=== PATIENT | male | born 1940 | race Caucasian/White ===

== ENCOUNTER 2017-06-16 18:42 | Inpatient (IN) | payer OTHER ==
[~2017-06-16] VITALS: Ht 182.9 cm; Wt 83.4 kg
--- NOTE | 2017-06-16 19:10 | EMERGENCY ROOM VISIT NOTE ---
History Report prepared by Gloria: Dian Whitehead Under the Supervision of: Dr. Kwadwo Delvalle M.D. 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 The patient states for the past week he has had some dizziness and balance problems. Over the past week he has had two episodes where he lost his balance completely and fell to the ground. He denies any injury from the falls. He did not hit his head. He denies feeling like the room is spinning and states that he sometimes just feels lightheaded. states that he has been having a difficult time getting up out of his chair. The patient reports that he has been feeling generally weak all over for the past week or so. and patient agree that he has been having difficulty doing things for the past few months. He has had a hard time buttoning his clothes. He has been having a hard time putting his password in the computer. He states that this morning it took him 6 tries to remember his password. states that he has been trying to put on his clothes upside down. Three days ago the patient started complaining of pain above his right eye. His daughter was recently sick with the flu and he thought that he might be getting that. The patient denies rash, cough, neck pain, chest pain, shortness of breath, abdominal pain, urinary symptoms, melena, and hematochezia. He does not take any blood thinners. 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 Review of Systems See HPI for pertinent positives & negatives. A total of 10 systems reviewed and were otherwise negative. Past Medical & Surgical Medical Problems: (1) Hypertension (2) Laceration of lower extremity (3) Lower leg fracture (4) Weight loss, non-intentional Old medical records were reviewed. Nurse's notes were reviewed and I agree with. Family History Diabetes mellitus FH: heart disease Social History Smoking Status: Never Smoker Drug Use: none Marital Status: Housing Status: lives with family Occupation Status: retired Allergies Coded Allergies: No Known Allergies (Verified , 02/23/15) Physical Exam Vital Signs Date Time Temp Pulse Resp B/P (MAP) Pulse Ox O2 Delivery O2 Flow Rate FiO2 06/16/17 19:30 71 20 144/78 94 Room Air 06/16/17 18:45 36.9 84 18 153/80 95 Room Air Physical Exam General: Non-ill appearing older male in no acute distress, alert and oriented x3. HEENT: Normal cephalic atraumatic. Pupils are equal round and reactive to light. Sclerae anicteric. Extraocular movements are intact. Oropharynx is pink with moist mucous membranes. No swelling of the mouth lips or tongue. Neck: Supple with a midline trachea. No meningeal signs or stiffness, no JVD or bruits. No Stridor. Chest: Clear to auscultation bilaterally. No wheezes or rhonchi. No increased work of breathing. Heart: regular rate and rhythm. Abdomen: Soft nontender, nondistended without rebound guarding or rigidity. Extremities: No cyanosis clubbing or edema. No calf tenderness or assymetry Spine/Back. Non tender to palpation. No CVA tenderness Skin: Good turgor without rashes. Neurologic exam: Cranial nerves two through 12 are intact. Motor and sensation are intact and symmetrical throughout. No tremor, finger to nose intact. Medical Decision & Procedures ER Provider Diagnostic Interpretation: Radiology results as stated below per my review and radiologist interpretation: HEAD CT NONCONTRAST CT DOSE: 614.27 mGy.cm HISTORY: diffulty walking, confusion TECHNIQUE: Multiaxial CT images of the head were performed without the use of intravenous contrast. Automated exposure control was utilized for this study. A dose lowering technique was utilized adhering to the principles of ALARA. Comparison: None. Findings: Trace fluid and mild mucosal thickening within the left maxillary sinus. The calvarium and skull base are intact. There is no mass, hematoma, midline shift. Focal hypodense area within the right anterior temporal lobe which measures 2.5 x 1.5 cm. This is consistent with a subacute infarct. Punctate old lacunar infarct within the left basal ganglia. Impression: Small focal hypodensity within the right temporal lobe consistent with a subacute infarct. No intracranial hemorrhage identified. Electronically signed by: Tim Garza M.D. 06/16/2017 8:10 PM Dictated Date/Time: 06/16/2017 8:00 PM CHEST ONE VIEW PORTABLE HISTORY: Atypical CHEST PAIN COMPARISON: None. FINDINGS: The lungs are clear. Cardiac silhouette is normal in size. No pleural effusions. No pneumothorax. IMPRESSION: No acute process. Electronically signed by: Tim Garza M.D. 06/16/2017 7:23 PM Dictated Date/Time: 06/16/2017 7:19 PM Laboratory Results 06/16/17 19:10 Red Blood Count 4.64, Mean Corpuscular Volume 92.2, Mean Corpuscular Hemoglobin 32.1, Mean Corpuscular Hemoglobin Concent 34.8, Mean Platelet Volume 10.2, Neutrophils (%) (Auto) 67.4, Lymphocytes (%) (Auto) 18.6, Monocytes (%) (Auto) 11.5, Eosinophils (%) (Auto) 1.8, Basophils (%) (Auto) 0.5, Neutrophils # (Auto ) 8.21, Lymphocytes # (Auto) 2.26, Monocytes # (Auto) 1.40, Eosinophils # (Auto ) 0.22, Basophils # (Auto) 0.06 06/16/17 19:10 Test 06/16/17 19:10 06/16/17 19:45 White Blood Count 12.18 K/uL (4.8-10.8) Red Blood Count 4.64 M/uL (4.7-6.1) Hemoglobin 14.9 g/dL (14.0-18.0) Hematocrit 42.8 % (42-52) Mean Corpuscular Volume 92.2 fL (80-100) Mean Corpuscular Hemoglobin 32.1 pg (25-34) Mean Corpuscular Hemoglobin Concent 34.8 g/dl (32-36) Platelet Count 284 K/uL (130-400) Mean Platelet Volume 10.2 fL (7.4-10.4) Neutrophils (%) (Auto) 67.4 % Lymphocytes (%) (Auto) 18.6 % Monocytes (%) (Auto) 11.5 % Eosinophils (%) (Auto) 1.8 % Basophils (%) (Auto) 0.5 % Neutrophils # (Auto) 8.21 K/uL (1.4-6.5) Lymphocytes # (Auto) 2.26 K/uL (1.2-3.4) Monocytes # (Auto) 1.40 K/uL (0.11-0.59) Eosinophils # (Auto) 0.22 K/uL (0-0.5) Basophils # (Auto) 0.06 K/uL (0-0.2) RDW Standard Deviation 43.0 fL (36.4-46.3) RDW Coefficient of Variation 12.8 % (11.5-14.5) Immature Granulocyte % (Auto) 0.2 % Immature Granulocyte # (Auto) 0.03 K/uL (0.00-0.02) Erythrocyte Sedimentation Rate 10 mm/hr (0-14) Prothrombin Time 10.7 SECONDS (9.0-12.0) Prothromb Time International Ratio 1.0 (0.9-1.1) Activated Partial Thromboplast Time 36.6 SECONDS (21.0-31.0) Partial Thromboplastin Ratio 1.4 Anion Gap 7.0 mmol/L (3-11) Est Creatinine Clear Calc Drug Dose 53.1 ml/min Estimated GFR () 62.2 Estimated GFR (Non- 53.6 BUN/Creatinine Ratio 14.1 (10-20) Calcium Level 9.3 mg/dl (8.5-10.1) Total Bilirubin 1.4 mg/dl (0.2-1) Direct Bilirubin 0.2 mg/dl (0-0.2) Aspartate Amino Transf (AST/SGOT) 19 U/L (15-37) Alanine Aminotransferase (ALT/SGPT) 34 U/L (12-78) Alkaline Phosphatase 74 U/L (45-117) Total Protein 7.6 gm/dl (6.4-8.2) Albumin 4.1 gm/dl (3.4-5.0) Lipase 145 U/L (73-393) Thyroid Stimulating Hormone (TSH) 2.300 uIu/ml (0.300-4.500) Troponin I < 0.015 ng/ml (0-0.045) Laboratory studies as stated above per my review. ECG Indication: weakness Rate (beats per minute): 73 Rhythm: normal sinus Findings: no acute ischemic change, no ectopy, other (poor R-wave progression) Comparison ECG Date: 09/01/1997 Change: Rate has increased, poor R-wave progression is now present. ED Course 1851: Past medical records reviewed. The patient was evaluated in room B11B, and a complete history and physical examination were performed. 2017: I reassessed the patient at this time. He is feeling better and resting comfortably. I discussed the results and treatment plan with the patient and his . I answered all pertaining questions that they had. They expressed understanding and verbalized agreement. 2027: I spoke with Dr. Tolbert. We discussed the patients case. The patient will be evaluated by the [facility] for further management. Medical Decision Differentials include, but are not limited to; stroke, vertigo, intracranial hemorrhage, tumor, cardiac disease, infection, electrolyte or metabolic abnormality. This patient comes in as described above. He looks well on exam he is nontoxic and non-lethargic. He's been having problems over the last couple days to weeks at a been getting worse where he has difficult time ambulating also has had some confusion at times doing simple tasks like buttoning. He had a mild headache at times no neck pain or stiffness. He has no fever. He has no focal neurologic deficits at present. IV access established. EKG was obtained and multiple blood testing was obtained. There is certainly concern about possible stroke or central neurologic process however he is well outside the window for TPA as this has been going on for several days. Additionally symptoms are relatively mild. EKG does not suggest acute coronary syndrome or arrhythmia. He has no acute electrolyte or metabolic abnormalities. CAT scan his has does show subacute infarct. In light of this, I do think he needs to be admitted for further inpatient treatment and workup. I have consulted Dr. Lima and the patient will be seen in the ER Medication Reconcilliation Current Medication List: was personally reviewed by me Blood Pressure Screening Patient's blood pressure: Elevated blood pressure Blood pressure disposition: Elevated BP felt to be situational Consults Time Called: 2024 Consulting Physician: Dr. Tolbert Returned Call: [address] Tolbert. We discussed the patients case. The patient will be evaluated by the [facility] for further management. Impression Primary Impression: Stroke Scribe Attestation The scribe's documentation has been prepared under my direction and personally reviewed by me in its entirety. I confirm that the note above accurately reflects all work, treatment, procedures, and medical decision making performed by me. Departure Information Dispostion Being Evaluated By Hospitalist Referrals Bharath Garcia M.D. (PCP) Patient Instructions My [facility] Stroke History Time Last Known Well unknown Stroke t-PA Criteria Reviewed Does NOT meet criteria for t-PA Reason t-PA Not Given Treatment not indicated Problem Qualifiers Primary Impression: Stroke
--- NOTE | 2017-06-16 19:24 | DIAGNOSTIC IMAGING REPORT ---
CHEST ONE VIEW PORTABLE HISTORY: Atypical CHEST PAIN COMPARISON: None. FINDINGS: The lungs are clear. Cardiac silhouette is normal in size. No pleural effusions. No pneumothorax. IMPRESSION: No acute process. Electronically signed by: Tim Garza M.D. 06/16/2017 7:23 PM Dictated Date/Time: 06/16/2017 7:19 PM
[2017-06-16 19:32] LABS: BASO % 0.5 %; BASO ABS # 0.06 K/uL (0-0.2); COMPLETE YES; EOS % 1.8 %; HEMATOCRIT 42.8 % (42-52); IG% 0.2 %; LYMPH % 18.6 %; LYMPH ABS # 2.26 K/uL (1.2-3.4); MEAN CELL VOLUME 92.2 fL (80-100); MEAN CORPUSCULAR HEMOGLOBIN 32.1 pg (25-34); MEAN CORPUSCULAR HGB CONC 34.8 g/dl (32-36); MEAN PLATELET VOLUME 10.2 fL (7.4-10.4); MONO % 11.5 %; NEUT % 67.4 %; PLATELET COUNT 284 K/uL (130-400); RED BLOOD COUNT 4.64 M/uL (4.7-6.1); WHITE BLOOD COUNT 12.18 K/uL (4.8-10.8)
[2017-06-16 19:43] LABS: PARTIAL THROMBOPLASTIN RATIO 1.4; PROTHROMBIN TIME (PATIENT) 10.7 SECONDS (9.0-12.0)
[2017-06-16 19:53] LABS: BUN/CREATININE RATIO 14.1 (10-20); CALCIUM 9.3 mg/dl (8.5-10.1); CREATININE 1.28 mg/dl (0.60-1.40)
[2017-06-16 20:04] LABS: THYROID STIMULATING HORMONE 2.3 uIu/ml (0.300-4.500)
--- NOTE | 2017-06-16 20:12 | DIAGNOSTIC IMAGING REPORT ---
HEAD CT NONCONTRAST CT DOSE: 614.27 mGy.cm HISTORY: diffulty walking, confusion TECHNIQUE: Multiaxial CT images of the head were performed without the use of intravenous contrast. Automated exposure control was utilized for this study. A dose lowering technique was utilized adhering to the principles of ALARA. Comparison: None. Findings: Trace fluid and mild mucosal thickening within the left maxillary sinus. The calvarium and skull base are intact. There is no mass, hematoma, midline shift. Focal hypodense area within the right anterior temporal lobe which measures 2.5 x 1.5 cm. This is consistent with a subacute infarct. Punctate old lacunar infarct within the left basal ganglia. Impression: Small focal hypodensity within the right temporal lobe consistent with a subacute infarct. No intracranial hemorrhage identified. Electronically signed by: Tim Garza M.D. 06/16/2017 8:10 PM Dictated Date/Time: 06/16/2017 8:00 PM
[2017-06-16] MEDS ORDERED: ASPIRIN 81 MG CHEW PO STA (20:24)
[2017-06-16 21:19] LABS: URINE APPEARANCE CLEAR (CLEAR); URINE BILIRUBIN NEG (NEG); URINE COLOR YELLOW; URINE NITRITE NEG (NEG); URINE PH 6.5 (4.5-7.5); URINE SPECIFIC GRAVITY 1.017 (1.000-1.030); UROBILINOGEN NEG (NEG)
[2017-06-16 21:20] LABS: MANUAL MICROSCOPIC REQUIRED? NO; REVIEW REQ? NO
[2017-06-16] MEDS ORDERED: ALUMINUM/MAGNESIUM/SIMETH (MAALOX MAX) 30 ML UDC PO PRN (22:15)
[2017-06-16] MEDS ORDERED: POLYETHYLENE (MIRALAX) 17 GM PACK PO PRN (22:15)
[2017-06-16] MEDS ORDERED: ZOLPIDEM TARTRATE 5 MG TAB PO PRN (22:15)
[2017-06-16] MEDS ORDERED: MoRPHine SULFATE 2 MG/ML CARP IV PRN (22:15)
[2017-06-16] MEDS ORDERED: PHARMACIST DISCHARGE MED REC CONSULT PRN (22:15)
[2017-06-16] MEDS ORDERED: ONDANSETRON INJ 2 MG/ML 2 ML VIAL IV PRN (22:15)
[2017-06-16] MEDS ORDERED: MAGNESIUM HYDROXIDE SUSP 30 ML UDC PO PRN (22:15)
--- NOTE | 2017-06-16 23:15 | History and Physical ---
History & Physical Date & Time of Service: Jun 16, 2017 at 22:59 Chief Complaint: Sob,Unsteady With Balance,Congitive Issues,Headach Primary Care Physician: No Doctor, Assigned History of Present Illness Source: patient 77 y/o M who denies any significant medical history and does not take any daily medications. Beginning approximately 3 days ago he describes an acute unsteady gate, difficulty buttoning his shirt and possibly a L facial droop. He presented to the ER as his issues did not resolve. He denies a LOYOLA, visual changes, fevers, CP, palpitations, SOB. A CT head confirmed a right temporal lobe subacute infarct. He does not currently exhibit impaired coordination although his gait remains unstable and there is a noticeable L facial droop. Past Medical/Surgical History Medical Problems: (1) Hypertension Status: Chronic (2) Laceration of lower extremity Status: Resolved (3) Lower leg fracture Status: Resolved (4) Weight loss, non-intentional Status: Resolved Family History Diabetes mellitus FH: heart disease Mother MS, DM Father "old age" 91 Social History Retired from [employer] Smoking Status: Never Smoker Drug Use: none Marital Status: Occupational Status: retired Multi-Drug Resistant Organisms History of MDRO: No Allergies Coded Allergies: No Known Allergies (Verified , 06/16/17) Home Medications No Active Prescriptions or Reported Meds Review of Systems Constitutional: No fever, No chills, No sweats Eyes: No worsening of vision ENT: No hearing loss, No unusual epistaxis, No nasal symptoms Respiratory: No cough, No sputum, No wheezing Cardiovascular: No chest pain, No orthopnea, No PND Abdomen: No pain, No nausea, No vomiting Musculoskeletal: No joint pain Genitourinary - Male: No hematuria, No dysuria, No urinary frequency Neurologic: + balance problems, + problem reported (Difficulty buttoning shirt - L facial droop) Psychiatric: No depression symptoms Endocrine: No fatigue Hematologic / Lymphatic: No abnormal bleeding/bruising Integumentary: No rash Allergic / Immunologic: No environmental allergies Physical Exam Vital Signs Date Time Temp Pulse Resp B/P (MAP) Pulse Ox O2 Delivery O2 Flow Rate FiO2 06/16/17 22:35 61 20 156/86 97 Room Air 06/16/17 20:45 70 20 173/92 98 Room Air 06/16/17 19:30 71 20 144/78 94 Room Air 06/16/17 18:45 36.9 84 18 153/80 95 Room Air General Appearance: WD/WN, no apparent distress Head: + pertinent finding (L facial droop) ENT: normal ENT inspection, pharynx normal Neck: supple, no JVD Respiratory/Chest: chest non-tender, lungs clear, normal breath sounds Cardiovascular: regular rate, rhythm Abdomen/GI: normal bowel sounds, non tender, soft Back: normal inspection, no CVA tenderness Extremities/Musculoskelatal: normal inspection, no calf tenderness, normal capillary refill, no pedal edema, normal range of motion Neurologic/Psych: + pertinent finding (AAO x 3 , L facial droop and flattening of nasolabial fold present, Visual cameron are intact however he tends to cancel his L field with movement in both - can see both individually - No strength or sensory defecits noted in extrems - coordination intact - gait unsteady - not tested extensively) Diagnostics Laboratory Results Results Past 24 Hours Test 06/16/17 19:10 06/16/17 19:45 06/16/17 21:05 Range/Units White Blood Count 12.18 4.8-10.8 K/uL Red Blood Count 4.64 4.7-6.1 M/uL Hemoglobin 14.9 14.0-18.0 g/dL Hematocrit 42.8 42-52 % Mean Corpuscular Volume 92.2 80-100 fL Mean Corpuscular Hemoglobin 32.1 25-34 pg Mean Corpuscular Hemoglobin Concent 34.8 32-36 g/dl Platelet Count 284 130-400 K/uL Mean Platelet Volume 10.2 7.4-10.4 fL Neutrophils (%) (Auto) 67.4 % Lymphocytes (%) (Auto) 18.6 % Monocytes (%) (Auto) 11.5 % Eosinophils (%) (Auto) 1.8 % Basophils (%) (Auto) 0.5 % Neutrophils # (Auto) 8.21 1.4-6.5 K/uL Lymphocytes # (Auto) 2.26 1.2-3.4 K/uL Monocytes # (Auto) 1.40 0.11-0.59 K/uL Eosinophils # (Auto) 0.22 0-0.5 K/uL Basophils # (Auto) 0.06 0-0.2 K/uL RDW Standard Deviation 43.0 36.4-46.3 fL RDW Coefficient of Variation 12.8 11.5-14.5 % Immature Granulocyte % (Auto) 0.2 % Immature Granulocyte # (Auto) 0.03 0.00-0.02 K/uL Erythrocyte Sedimentation Rate 10 0-14 mm/hr Prothrombin Time 10.7 9.0-12.0 SECONDS Prothromb Time International Ratio 1.0 0.9-1.1 Activated Partial Thromboplast Time 36.6 21.0-31.0 SECONDS Partial Thromboplastin Ratio 1.4 Sodium Level 137 136-145 mmol/L Potassium Level 4.0 3.5-5.1 mmol/L Chloride Level 102 98-107 mmol/L Carbon Dioxide Level 27 21-32 mmol/L Anion Gap 7.0 3-11 mmol/L Blood Urea Nitrogen 18 7-18 mg/dl Creatinine 1.28 0.60-1.40 mg/dl Est Creatinine Clear Calc Drug Dose 53.1 ml/min Estimated GFR () 62.2 Estimated GFR (Non- 53.6 BUN/Creatinine Ratio 14.1 10-20 Random Glucose 118 70-99 mg/dl Calcium Level 9.3 8.5-10.1 mg/dl Total Bilirubin 1.4 0.2-1 mg/dl Direct Bilirubin 0.2 0-0.2 mg/dl Aspartate Amino Transf (AST/SGOT) 19 15-37 U/L Alanine Aminotransferase (ALT/SGPT) 34 12-78 U/L Alkaline Phosphatase 74 45-117 U/L Total Protein 7.6 6.4-8.2 gm/dl Albumin 4.1 3.4-5.0 gm/dl Lipase 145 73-393 U/L Thyroid Stimulating Hormone (TSH) 2.300 0.300-4.500 uIu/ml Troponin I < 0.015 0-0.045 ng/ml Urine Color YELLOW Urine Appearance CLEAR CLEAR Urine pH 6.5 4.5-7.5 Urine Specific [place] 1.017 1.000-1.030 Urine Protein NEG NEG Urine Glucose (UA) NEG NEG Urine Ketones NEG NEG Urine Occult Blood NEG NEG Urine Nitrite NEG NEG Urine Bilirubin NEG NEG Urine Urobilinogen NEG NEG Urine Leukocyte Esterase NEG NEG Microbiology Results 06/16/17 Urine Culture, Received Pending Diagnostic Radiology CT head: Small focal hypodensity within the right temporal lobe consistent with a subacute infarct. No intracranial hemorrhage identified. EKG NSR - evidence of previous septal infarct Impression Assessment and Plan 77 y/o M who denies any significant medical history and does not take any daily medications. Beginning approximately 3 days ago he describes an acute unsteady gate, difficulty buttoning his shirt and possibly a L facial droop. He presented to the ER as his issues did not resolve. He denies a LOYOLA, visual changes, fevers, CP, palpitations, SOB. A CT head confirmed a right temporal lobe subacute infarct. He does not currently exhibit impaired coordination although his gait remains unstable and there is a noticeable L facial droop. 1) CVA - pt admitted to telemetry - MRA ordered - neurology consult requested - placed on ASA and a Statin. PT/OT requested. We will order an echo as his EKG may indicate a previous septal infarct. 2) Pressure is marginally elevated - will trend and may need antihypertensive on DC Full code - Heparin prophylaxis Total time for this admit including review of labs, meds, imaging, records - discussion with pt and ER attending - 35 min Level of Care Telemetry Resuscitation Status FULL RESUSCITATION VTE Prophylaxis VTE Risk Assessment Done? Y/N: Yes Risk Level: Moderate Given or contraindicated: Unfractionated heparin SQ
[2017-06-16] MEDS ORDERED: IV FLUIDS COMPLETED PRN (23:45)
[2017-06-17] VITALS (7 sets, daily range): BP systolic 116–167; BP diastolic 70–87; PULSE 57–61; TEMP 36.2–36.8; O2SAT 93–97; Ht 182.9 cm; Wt 83.4 kg
[2017-06-17] MEDS ORDERED: GADAVIST IV PRN (00:05)
[2017-06-17 06:25] LABS: BASO % 0.6 %; BASO ABS # 0.05 K/uL (0-0.2); COMPLETE YES; EOS % 4.1 %; IG% 0.3 %; LYMPH % 25.2 %; LYMPH ABS # 2.29 K/uL (1.2-3.4); MEAN CELL VOLUME 93.6 fL (80-100); MEAN CORPUSCULAR HEMOGLOBIN 32.4 pg (25-34); MEAN CORPUSCULAR HGB CONC 34.6 g/dl (32-36); MEAN PLATELET VOLUME 10.4 fL (7.4-10.4); MONO % 16.9 %; NEUT % 52.9 %; PLATELET COUNT 255 K/uL (130-400); RED BLOOD COUNT 4.38 M/uL (4.7-6.1); WHITE BLOOD COUNT 9.08 K/uL (4.8-10.8)
[2017-06-17] MEDS: HEPARIN SOD 5000 UNIT/0.5 ML CARP SQ SCH ×2 (06:31→14:27)
--- NOTE | 2017-06-17 06:41 | DIAGNOSTIC IMAGING REPORT ---
MRA HEAD WITHOUT CONTRAST HISTORY: Mental status change Stroke - Attention to [place] [facility] [place] TECHNIQUE: 3-D [id number] MRA of the brain was performed without contrast. COMPARISON STUDY: None. FINDINGS: The bones are intracranial vascular arterial structures are unremarkable. No significant stenotic process of the major vessels. There is a small branch vessel showing considerable narrowing with potential partial occlusion of the right middle cerebral arterial vasculature of the right superior M2 distribution. No additional focus of stenosis is identified. IMPRESSION: 1. Small branch occlusion of a small vessel arising from the right M2 middle cerebral arterial distribution. 2. The remainder the intracranial vasculature is unremarkable. The above report was generated using voice recognition software. It may contain grammatical, syntax or spelling errors. Electronically signed by: Steven Guillory M.D. 06/17/2017 6:40 AM Dictated Date/Time: 06/17/2017 6:37 AM
[2017-06-17 06:51] LABS: ESTIMATED AVERAGE GLUCOSE 131 mg/dl; HA1C FLAG Normal (Normal)
[2017-06-17 06:57] LABS: BUN/CREATININE RATIO 14.8 (10-20); CREATININE 1.22 mg/dl (0.60-1.40)
[2017-06-17 07:00] LABS: CHOLESTEROL/HDL RATIO 4.1
--- NOTE | 2017-06-17 07:08 | DIAGNOSTIC IMAGING REPORT ---
NECK MRA HISTORY: Balance incontinence and difficulty Stroke TECHNIQUE: [id number] and gadolinium-enhanced MRA of the neck was performed both before and after the intravenous administration of contrast. All measurements were calculated based on NASCET criteria. The patient was administered 8.5 cc of intravenous Gadavist COMPARISON STUDY: None. FINDINGS: The aortic arch and proximal great vessels are widely patent. There is atherosclerotic irregularity involving the proximal right internal carotid artery demonstrating less than 30% stenosis. There is no hidden avidly significant stenosis of the left internal carotid artery. There is no vertebral artery stenosis. IMPRESSION: Atheromatous irregularity the proximal right internal carotid artery. No evidence of hemodynamic significant carotid stenosis. No evidence of vertebral artery stenosis. Electronically signed by: Dillan Ramsey M.D. 06/17/2017 7:06 AM Dictated Date/Time: 06/17/2017 7:03 AM
--- NOTE | 2017-06-17 07:33 | DIAGNOSTIC IMAGING REPORT ---
MRI OF THE BRAIN WITHOUT IV CONTRAST CLINICAL HISTORY: Strokelike symptoms. COMPARISON STUDY: CT of the brain dated 06/16/2017. TECHNIQUE: MRI of the brain was performed utilizing various T1 and T2-weighted sequences in the axial, sagittal, and coronal planes. IV contrast was not administered for this examination. FINDINGS: Brain parenchyma: There is an approximately 2.5 cm region of restricted diffusion identified within the right temporal lobe, with additional punctate foci of restricted diffusion seen in the right temporal, parietal, and occipital lobes consistent with acute to subacute ischemia. There is no hemorrhage or midline shift. No extra-axial fluid collection is seen. Minimal periventricular microangiopathic disease is observed. The cerebellar tonsils are normal in configuration. Ventricles, sulci, and cisterns: Normal in configuration. Pituitary and sella: Unremarkable. Intracranial vasculature: Normal flow voids are maintained at the skull base. Orbits: The bony orbits are grossly intact. Orbital contents are normal in appearance. Sinuses and mastoids: There is mild mucosal thickening within air-fluid level in the left maxillary antrum. The remaining paranasal sinuses and mastoid air cells are clear. Calvarium: Unremarkable. Cervical cord: Partially visualized cervical spinal cord is normal in morphology and signal intensity. IMPRESSION: 1. There is an acute to subacute cortical infarct identified in the right temporal lobe. 2. There are additional punctate foci of acute to subacute ischemia present within the right temporal, parietal, and occipital lobes. The appearance suggests an embolic origin throughout the right MCA territory. 3. There is no hemorrhage or mass effect. Electronically signed by: Tor Solano M.D. 06/17/2017 7:31 AM Dictated Date/Time: 06/17/2017 6:55 AM
[2017-06-17] MEDS: ATORVASTATIN 40 MG TAB PO SCH ×3 (08:07→11:47)
[2017-06-17] MEDS ORDERED: ASPIRIN/ALUM/MAGNES/CAL CARB 325 MG TAB PO SCH (09:00)
--- NOTE | 2017-06-17 09:32 | Medical Student: [facility] ---
Consultation Date of Consultation: Jun 17, 2017. Requesting Physician: Dr. Garay Attending Physician: Dr. Marroquin Reason for Consultation: CVA History of Present Illness Amauri Oropeza is a 77 yo male who presented to the ED complaining of difficulty putting on his clothes and trouble remembering his password for the past day. He states that over the last 3 months he has had increased balance problems, with two falls in the past week, where he fell into a flower bed and off of the uneven sidewalk. He denies hitting his head or loss of consciousness on either fall. Also during the last 3 months he has been experiencing increased frustration, slowness in responses, and difficulty concentrating. Then yesterday his started noticed he was having difficulties with zippers and buttons, and he had also put his jacket on upsidedown. His denies noticing a facial droop, but reports that the ED physician stated he had one. His also notes that they live with their daughter, who has been sick with the flu for the past week, stating the patient had complained of right sided headache 3 days ago, fever, chills, and intermittent diarrhea for the last week , but she figured he was coming down the with the same flu. Patient also mentions an area of itchiness on the back of his head on the right side. He denies symptoms of headache, vision changes, current fever/chills, chest pain, shortness of breath, palpitations, cough, abdominal pain, nausea, vomiting, and constipation. 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) Review of Systems Constitutional: + problem reported (headache 3 days ago, resolved), No fever ( subjective, resolved), No chills (resolved) Eyes: No worsening of vision, No redness, No diplopia ENT: No hearing loss, No sore throat Respiratory: No cough Cardiac: No chest pain, No edema, No palpitations Abdomen: + diarrhea (for last week), No pain, No nausea, No vomiting, No constipation Male : No dysuria, No incontinence Neurologic: + weakness, + balance problems, No numbness/tingling Heme: No abnormal bleeding/bruising Endo: No fatigue Skin: + itch (right occiptial dry area) Allergies Coded Allergies: No Known Allergies (Verified , 06/16/17) Medications Current Inpatient Medications Medications (Trade) Dose Ordered Sig/Fransisca Route Start Time Stop Time Status Last Admin Dose Admin Miscellaneous Information (Pharmacist Discharge Med Rec Consult) 1 ea UD PRN N/A 06/16/17 22:15 07/16/17 22:14 Heparin Sodium (Porcine) (Heparin Sq 5000 Unit/0.5ml) 5,000 unit Q8 SQ 06/17/17 06:00 07/17/17 05:59 06/17/17 06:31 5,000 UNIT Al Hydrox/Mg Hydrox/Simethicone (Maalox Max Susp) 15 ml Q4H PRN PO 06/16/17 22:15 07/16/17 22:14 Magnesium Hydroxide (Milk Of Magnesia Susp) 30 ml Q12H PRN PO 06/16/17 22:15 07/16/17 22:14 Zolpidem Tartrate (Ambien Tab) 5 mg HSZ PRN PO 06/16/17 22:15 07/16/17 22:14 Ondansetron HCl (Zofran Inj) 4 mg Q6H PRN IV 06/16/17 22:15 07/16/17 22:14 Morphine Sulfate (MoRPHine SULFATE INJ) 2 mg Q30M PRN IV 06/16/17 22:15 06/30/17 22:14 Polyethylene (Miralax Powder Packet) 17 gm DAILY PRN PO 06/16/17 22:15 07/16/17 22:14 Aspirin/Aluminum/ Magnesium/Ca Carb (Ascriptin Tab) 325 mg DAILY PO 06/17/17 09:00 07/17/17 08:59 06/17/17 08:08 325 MG Atorvastatin Calcium (Lipitor Tab) 40 mg QAM PO 06/17/17 09:00 07/17/17 08:59 06/17/17 08:07 40 MG Miscellaneous (Iv Fluids Completed) 1 ea PRN PRN N/A 06/16/17 23:45 06/16/18 23:44 Gadobutrol (Gadavist) 8.5 mmol UD PRN IV 06/17/17 00:05 06/21/17 00:04 Physical Exam Date Time Temp Pulse Resp B/P (MAP) Pulse Ox O2 Delivery O2 Flow Rate FiO2 06/17/17 08:00 Room Air 06/17/17 07:34 36.6 59 18 124/73 (90) 95 Room Air 06/17/17 04:15 96 Room Air 06/17/17 03:30 36.2 57 20 116/70 (85) 97 Room Air 06/17/17 00:50 36.2 61 18 167/87 96 Room Air 06/16/17 22:35 61 20 156/86 97 Room Air 06/16/17 20:45 70 20 173/92 98 Room Air 06/16/17 19:30 71 20 144/78 94 Room Air 06/16/17 18:45 36.9 84 18 153/80 95 Room Air Eyes: bilateral eyes normal inspection, bilateral eyes PERRL, bilateral eyes EOMI ENT: normal ENT inspection, hearing grossly normal Neck: supple Neurological exam: Right handed male, alert and oriented x3 MSE: 28/30, missed 1 object recall, missed 1 side of one intersecting pentagons Cranial Nerves: II: visual acuity intact bilaterally (20/20 without glasses), visual cameron intact in each eye separately, but some hesitancy when testing both eyes together (some right field dominance), funduscopic exam appreciated in both eyes , but difficult to see vessels since patient had trouble keeping his eyes open. III, IV, : eyelid opening intact bilaterally, extraocular movements intact bilaterally, direct and consensual pupillary light reflexes intact bilaterally V: facial sensation intact bilaterally in three facial distributions (V1, V2 , and V3) VII: mild left sided facial droop seen on frown/smile, bilateral eyebrow raise intact VIII: hearing grossly intact bilaterally IX, X: palate elevation symmetric, no difficulty swallowing XI: lateral head oration, neck flexion, and shoulder shrug intact XII: tongue protrusion intact and strength on lateral deviation equal Sensation: intact to light touch in all four extremities, some numbness noted in bilateral feet (chronic) Tone: normal in all four extremities Strength: 4+/5 in left interosseus muscles, all other muscles (both proximal and distal) 5/5 strength in upper and lower extremities bilaterally Reflexes: absent ankle jerk bilaterally, all other reflexes 1/4 throughout ( biceps, triceps, brachioradialis, patellar) bilaterally, downward Babinksi bilaterally Cerebellum: [id number] slight slower on left side, rapid alternating movements also slightly slower on left (but patient is right handed) Gait: stable, confident, no sway Laboratory Results Last 24 Hours Test 06/16/17 19:10 06/16/17 19:45 06/16/17 21:05 06/17/17 05:32 White Blood Count 12.18 K/uL 9.08 K/uL Red Blood Count 4.64 M/uL 4.38 M/uL Hemoglobin 14.9 g/dL 14.2 g/dL Hematocrit 42.8 % 41.0 % Mean Corpuscular Volume 92.2 fL 93.6 fL Mean Corpuscular Hemoglobin 32.1 pg 32.4 pg Mean Corpuscular Hemoglobin Concent 34.8 g/dl 34.6 g/dl Platelet Count 284 K/uL 255 K/uL Mean Platelet Volume 10.2 fL 10.4 fL Neutrophils (%) (Auto) 67.4 % 52.9 % Lymphocytes (%) (Auto) 18.6 % 25.2 % Monocytes (%) (Auto) 11.5 % 16.9 % Eosinophils (%) (Auto) 1.8 % 4.1 % Basophils (%) (Auto) 0.5 % 0.6 % Neutrophils # (Auto) 8.21 K/uL 4.81 K/uL Lymphocytes # (Auto) 2.26 K/uL 2.29 K/uL Monocytes # (Auto) 1.40 K/uL 1.53 K/uL Eosinophils # (Auto) 0.22 K/uL 0.37 K/uL Basophils # (Auto) 0.06 K/uL 0.05 K/uL RDW Standard Deviation 43.0 fL 43.9 fL RDW Coefficient of Variation 12.8 % 12.7 % Immature Granulocyte % (Auto) 0.2 % 0.3 % Immature Granulocyte # (Auto) 0.03 K/uL 0.03 K/uL Erythrocyte Sedimentation Rate 10 mm/hr Prothrombin Time 10.7 SECONDS Prothromb Time International Ratio 1.0 Activated Partial Thromboplast Time 36.6 SECONDS Partial Thromboplastin Ratio 1.4 Sodium Level 137 mmol/L 140 mmol/L Potassium Level 4.0 mmol/L 4.0 mmol/L Chloride Level 102 mmol/L 105 mmol/L Carbon Dioxide Level 27 mmol/L 27 mmol/L Anion Gap 7.0 mmol/L 8.0 mmol/L Blood Urea Nitrogen 18 mg/dl 18 mg/dl Creatinine 1.28 mg/dl 1.22 mg/dl Est Creatinine Clear Calc Drug Dose 53.1 ml/min 55.7 ml/min Estimated GFR () 62.2 65.9 Estimated GFR (Non- 53.6 56.8 BUN/Creatinine Ratio 14.1 14.8 Random Glucose 118 mg/dl 125 mg/dl Estimated Average Glucose 131 mg/dl Hemoglobin A1c 6.2 % Calcium Level 9.3 mg/dl 9.0 mg/dl Total Bilirubin 1.4 mg/dl Direct Bilirubin 0.2 mg/dl Aspartate Amino Transf (AST/SGOT) 19 U/L Alanine Aminotransferase (ALT/SGPT) 34 U/L Alkaline Phosphatase 74 U/L Total Protein 7.6 gm/dl Albumin 4.1 gm/dl Lipase 145 U/L Thyroid Stimulating Hormone (TSH) 2.300 uIu/ml Troponin I < 0.015 ng/ml Urine Color YELLOW Urine Appearance CLEAR Urine pH 6.5 Urine Specific [place] 1.017 Urine Protein NEG Urine Glucose (UA) NEG Urine Ketones NEG Urine Occult Blood NEG Urine Nitrite NEG Urine Bilirubin NEG Urine Urobilinogen NEG Urine Leukocyte Esterase NEG Triglycerides Level 211 mg/dl Cholesterol Level 164 mg/dl HDL Cholesterol 40 mg/dl LDL Cholesterol, Calculated 82 mg/dl VLDL Cholesterol, Calculated 42 mg/dl Cholesterol/HDL Ratio 4.1 Assessment & Plan Amauri Oropeza is a 77 yo male, with no PMHx, presented to the ED with sudden onset of difficulty putting on his clothes, difficulty concentrating, slower speech, and left sided facial droop since yesterday. Over the past 3 months, he has had increased coordination/balance problems with a few falls, increased frustration, and concentration difficulties. His non-contrast CT was remarkable for right temporal subacute infarct, but no hemorrhage. MRA of brain showed right M2 MCA small vessel occlusion which was confirmed on MRI showing acute to subacute cortical infarct identified in the right temporal lobe ; plus additional punctate foci of acute to subacute ischemia present within the right temporal, parietal, and occipital lobes in appearance of embolic origin throughout the right MCA territory. MRA of the neck showed no significant stenosis, but noted an atheromatous irregularity of the proximal right ICA. Differential included TIA vs stroke, but residual symptoms after 24 hours and imaging suggests CVA. With slowness/somewhat mask-like facies, balance problems, elevated blood pressure (167/87), and elevated blood sugar ( 125), underlying dementia, inner ear disorder, CVD, diabetes cannot be excluded. Plan: 1) CVA, acute or subacute - Echocardiogram to look for source (no significant carotid stenosis seen on MRA of neck) - Control risk factors (high blood pressure, diabetes, triglycerides) - Begin Plavix to help prevent future strokes - Consider anti-coagulant treatment pending echocardiogram results 2) Dementia, Parkinson vs. 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
--- NOTE | 2017-06-17 10:38 | Neurology Consultation ---
Neurology Consultation Date of Consultation: Jun 17, 2017. Attending Physician: Mohsen Garay D.O. Primary Care Physician: No Doctor, Assigned Reason for Consultation: Patient is a 77-year-old, who was asked to see at the request of Dr. Tolbert, for neurologic consultation regarding stroke. History of Present Illness Source: patient, caregiver, spouse, clinic records, hospital records This patient has no history of hypertension, diabetes, cigarette smoking, dyslipidemia, or stroke. He has no cardiac issues. Patient states that his feet have been numb for about a year. Over the last 3 months, he has had the insidious onset and gradual progression of balance problems. He has fallen more recently. He gets vertiginous at times and this can lead to a fall. In addition, he has had a several month history of gradual problems with short- term memory, concentration, gets frustrated easily. These issues have gradually gotten worse over the summer. He has been described as slowing with his speech and responses over time. About 3 days ago, he had some fever, chills, right-sided headache and some diarrhea that has been going on for about a week. His daughter was ill with the flu (and she lives with them). Yesterday, he was noted to not be able to use his hands it to do tasks as usual. He was not desk stress with buttons and he was not figuring out how to put clothing on correctly. He typed his password for the computer 6 times until he got it right. He has never had these issues before. He arrived June 16 at 6:45 p.m. four five hours in the emergency room. Temperature was 36.9, pulse 84 regular, respiratory rate 18, blood pressure 153 /80, and O2 saturation 95%. His neurologic examination was unremarkable with no focal signs and he was oriented. He was described as slow and he may have had a left facial droop. His NIH stroke scale was described as very low, but no number was given. CBC was unremarkable. The sed rate was 10. Chemistry profile was remarkable only for hemoglobin A1c of 6.2 and glucose of 118. Triglycerides were elevated at 211 the cholesterol was normal at 164. His blood pressures been elevated some since admission. MRI of the brain showed acute stroke in the right middle cerebral artery distribution scattered in the occipital, parietal, and temporal head regions. The largest lesions were in the temporal lobe. MR angiography of the head showed an occluded right M2 segment. MR angiography of the neck showed some irregularity in the right carotid artery but no significant stenosis. The patient has had no new events or worsening overnight according to nursing staff. He is stable this morning and feels much improved. He has no pain, headache, speech problem, vision problem, weakness, numbness, or balance problems. He had no incontinence of urine either. The CT scan of the head showed a small hypodense right temporal lesion that was considered subacute. Past Medical/Surgical History Medical Problems: (1) Stroke Status: Acute History of decreased hearing History of vitamin-D deficiency History vertigo and balance issues. His old chart shows that he was seen for vertigo and balance issues in July of 2016 as well. History of renal stones. Post appendectomy Post skin lesion removed from the right ear in 1999, no cancer Family History Mother age 60 with an PR and had heart disease and diabetes. Father age 91 of "old age" Social History Patient never smoked cigarettes or use alcohol. The patient was in the [employer] until age 40. 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 He was exposed to [place] during his tour in [employer]. 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) Allergies Coded Allergies: No Known Allergies (Verified , 06/16/17) Current Inpatient Medications Current Inpatient Medications Medications (Trade) Dose Ordered Sig/Fransisca Route Start Time Stop Time Status Last Admin Dose Admin Miscellaneous Information (Pharmacist Discharge Med Rec Consult) 1 ea UD PRN N/A 06/16/17 22:15 07/16/17 22:14 Heparin Sodium (Porcine) (Heparin Sq 5000 Unit/0.5ml) 5,000 unit Q8 SQ 06/17/17 06:00 07/17/17 05:59 06/17/17 06:31 5,000 UNIT Al Hydrox/Mg Hydrox/Simethicone (Maalox Max Susp) 15 ml Q4H PRN PO 06/16/17 22:15 07/16/17 22:14 Magnesium Hydroxide (Milk Of Magnesia Susp) 30 ml Q12H PRN PO 06/16/17 22:15 07/16/17 22:14 Zolpidem Tartrate (Ambien Tab) 5 mg HSZ PRN PO 06/16/17 22:15 07/16/17 22:14 Ondansetron HCl (Zofran Inj) 4 mg Q6H PRN IV 06/16/17 22:15 07/16/17 22:14 Morphine Sulfate (MoRPHine SULFATE INJ) 2 mg Q30M PRN IV 06/16/17 22:15 06/30/17 22:14 Polyethylene (Miralax Powder Packet) 17 gm DAILY PRN PO 06/16/17 22:15 07/16/17 22:14 Aspirin/Aluminum/ Magnesium/Ca Carb (Ascriptin Tab) 325 mg DAILY PO 06/17/17 09:00 07/17/17 08:59 06/17/17 08:08 325 MG Atorvastatin Calcium (Lipitor Tab) 40 mg QAM PO 06/17/17 09:00 07/17/17 08:59 06/17/17 08:07 40 MG Miscellaneous (Iv Fluids Completed) 1 ea PRN PRN N/A 06/16/17 23:45 06/16/18 23:44 Gadobutrol (Gadavist) 8.5 mmol UD PRN IV 06/17/17 00:05 06/21/17 00:04 Review of Systems Constitutional: No fever, No weakness, No fatigue Eyes: No worsening of vision, No diplopia ENT: No tinnitus, No trouble swallowing Respiratory: No cough, No shortness of breath Cardiovascular: No chest pain, No palpitations Abdomen: No pain, No nausea Musculoskeletal: No joint pain, No muscle pain Genitourinary - Male: No dysuria, No urinary incontinence Neurologic: + memory loss, + balance problems, No weakness, No numbness/ tingling, No vertigo Psychiatric: No depression symptoms, No anxiety Endocrine: No fatigue Hematologic / Lymphatic: No abnormal bleeding/bruising Integumentary: No rash Allergic / Immunologic: No hives Physical Exam Vital Signs (Past 24 Hrs): Date Time Temp Pulse Resp B/P (MAP) Pulse Ox O2 Delivery O2 Flow Rate FiO2 06/17/17 08:00 Room Air 06/17/17 07:34 36.6 59 18 124/73 (90) 95 Room Air 06/17/17 04:15 96 Room Air 06/17/17 03:30 36.2 57 20 116/70 (85) 97 Room Air 06/17/17 00:50 36.2 61 18 167/87 96 Room Air 06/16/17 22:35 61 20 156/86 97 Room Air 06/16/17 20:45 70 20 173/92 98 Room Air 06/16/17 19:30 71 20 144/78 94 Room Air 06/16/17 18:45 36.9 84 18 153/80 95 Room Air Patient is right-handed. The patient is awake and alert. Speech is hesitant to answer but without aphasia or dysarthria. Mentation and thought processes are slow with reasonable orientation and fund of knowledge. Mood and affect are normal and appropriate. Appearance and grooming are normal. Long and short-term memory is suspect for short-term memory but long-term memory is preserved. A mini-mental status examination was performed and he scored 28/30 points missing 1 point and recall and another on object drawing. The discs are sharp with positive venous pulsations. There is early cataract formation bilaterally. There are no exudates, hemorrhages, or blood vessel changes seen. Pupils are 3mm bilaterally and reactive to light. Extraocular eye muscles are intact without nystagmus. Visual acuity and visual cameron seem normal grossly to confrontation. There are no deficits to sensation of the face bilaterally. Corneal reflexes are positive bilaterally. Facial strength and symmetry is normal bilaterally. Hearing seems intact grossly to voice and finger rub. Palate moves well without asymmetry. There is normal sternocleidomastoid and trapezius strength bilaterally. Tongue is midline with good strength bilaterally. Neck is with full range of motion without discomfort. There are no cervical bruits. There are no cranial or ocular bruits. Heart is without murmur. Cervical, thoracic, and lumbar spine are nontender to palpation. Overall, he has some bradykinesia and slowness to his movements and thought. He has a slight masklike face. Gait is normal. There is good arm swing, turn, stance, and balance. With outstretched arms there is no drift. There are no resting, postural, or action tremors. There is no ataxia with [id number] testing, although he is a little slow. There is reasonable facility in the hands. There are no abnormal involuntary movements noted. Motor strength is 5/5 diffusely in the arms bilaterally including deltoids, biceps, brachioradialis, wrist flexors and extensors, and glue line operator. Intrinsic hand muscles are 4/5 on the left and 5/5 on the right. Motor strength is 5/5 diffusely in the legs bilaterally including hip flexors, quadriceps, hamstring, gastrocnemius, tibialis anterior, tibialis posterior, and peroneii muscles bilaterally. Toe extensors are normal and there is good bulk in the extensor digitorum brevis muscle bilaterally. The limbs have good tone without rigidity or spasticity, and there is no atrophy noted. Muscle bulk is normal, there is no tenderness, no myotonia noted to percussion, and no fasciculations seen. Sensory examination is remarkable for decreased sensation of pin touch in the feet to the ankles bilaterally. Reflexes are 1/4 in the biceps, triceps, brachioradialis, and quadriceps tendons bilaterally. Achilles tendon reflexes are absent bilaterally. Toes are downgoing with plantar stimulation bilaterally. Peripheral pulses are present and of normal quality distally in all four limbs. There is no peripheral edema noted. Laboratory Results Past 24 Hours: 06/17/17 05:32 Red Blood Count 4.38, Mean Corpuscular Volume 93.6, Mean Corpuscular Hemoglobin 32.4, Mean Corpuscular Hemoglobin Concent 34.6, Mean Platelet Volume 10.4, Neutrophils (%) (Auto) 52.9, Lymphocytes (%) (Auto) 25.2, Monocytes (%) (Auto) 16.9, Eosinophils (%) (Auto) 4.1, Basophils (%) (Auto) 0.6, Neutrophils # (Auto ) 4.81, Lymphocytes # (Auto) 2.29, Monocytes # (Auto) 1.53, Eosinophils # (Auto ) 0.37, Basophils # (Auto) 0.05 06/17/17 05:32 Test 06/16/17 19:10 06/16/17 19:45 06/16/17 21:05 06/17/17 05:32 Erythrocyte Sedimentation Rate 10 mm/hr (0-14) Prothrombin Time 10.7 SECONDS (9.0-12.0) Prothromb Time International Ratio 1.0 (0.9-1.1) Activated Partial Thromboplast Time 36.6 SECONDS (21.0-31.0) Partial Thromboplastin Ratio 1.4 Estimated Average Glucose 131 mg/dl Hemoglobin A1c 6.2 % (4.5-5.6) Total Bilirubin 1.4 mg/dl (0.2-1) Direct Bilirubin 0.2 mg/dl (0-0.2) Aspartate Amino Transf (AST/SGOT) 19 U/L (15-37) Alanine Aminotransferase (ALT/SGPT) 34 U/L (12-78) Alkaline Phosphatase 74 U/L (45-117) Total Protein 7.6 gm/dl (6.4-8.2) Albumin 4.1 gm/dl (3.4-5.0) Lipase 145 U/L (73-393) Thyroid Stimulating Hormone (TSH) 2.300 uIu/ml (0.300-4.500) Troponin I < 0.015 ng/ml (0-0.045) Urine Color YELLOW Urine Appearance CLEAR (CLEAR) Urine pH 6.5 (4.5-7.5) Urine Specific [place] 1.017 (1.000-1.030) Urine Protein NEG (NEG) Urine Glucose (UA) NEG (NEG) Urine Ketones NEG (NEG) Urine Occult Blood NEG (NEG) Urine Nitrite NEG (NEG) Urine Bilirubin NEG (NEG) Urine Urobilinogen NEG (NEG) Urine Leukocyte Esterase NEG (NEG) White Blood Count 9.08 K/uL (4.8-10.8) Red Blood Count 4.38 M/uL (4.7-6.1) Hemoglobin 14.2 g/dL (14.0-18.0) Hematocrit 41.0 % (42-52) Mean Corpuscular Volume 93.6 fL (80-100) Mean Corpuscular Hemoglobin 32.4 pg (25-34) Mean Corpuscular Hemoglobin Concent 34.6 g/dl (32-36) Platelet Count 255 K/uL (130-400) Mean Platelet Volume 10.4 fL (7.4-10.4) Neutrophils (%) (Auto) 52.9 % Lymphocytes (%) (Auto) 25.2 % Monocytes (%) (Auto) 16.9 % Eosinophils (%) (Auto) 4.1 % Basophils (%) (Auto) 0.6 % Neutrophils # (Auto) 4.81 K/uL (1.4-6.5) Lymphocytes # (Auto) 2.29 K/uL (1.2-3.4) Monocytes # (Auto) 1.53 K/uL (0.11-0.59) Eosinophils # (Auto) 0.37 K/uL (0-0.5) Basophils # (Auto) 0.05 K/uL (0-0.2) RDW Standard Deviation 43.9 fL (36.4-46.3) RDW Coefficient of Variation 12.7 % (11.5-14.5) Immature Granulocyte % (Auto) 0.3 % Immature Granulocyte # (Auto) 0.03 K/uL (0.00-0.02) Anion Gap 8.0 mmol/L (3-11) Est Creatinine Clear Calc Drug Dose 55.7 ml/min Estimated GFR () 65.9 Estimated GFR (Non- 56.8 BUN/Creatinine Ratio 14.8 (10-20) Calcium Level 9.0 mg/dl (8.5-10.1) Triglycerides Level 211 mg/dl (0-150) Cholesterol Level 164 mg/dl (0-200) HDL Cholesterol 40 mg/dl LDL Cholesterol, Calculated 82 mg/dl VLDL Cholesterol, Calculated 42 mg/dl Cholesterol/HDL Ratio 4.1 Imaging MRI OF THE BRAIN WITHOUT IV CONTRAST CLINICAL HISTORY: Strokelike symptoms. COMPARISON STUDY: CT of the brain dated 06/16/2017. TECHNIQUE: MRI of the brain was performed utilizing various T1 and T2-weighted sequences in the axial, sagittal, and coronal planes. IV contrast was not administered for this examination. FINDINGS: Brain parenchyma: There is an approximately 2.5 cm region of restricted diffusion identified within the right temporal lobe, with additional punctate foci of restricted diffusion seen in the right temporal, parietal, and occipital lobes consistent with acute to subacute ischemia. There is no hemorrhage or midline shift. No extra-axial fluid collection is seen. Minimal periventricular microangiopathic disease is observed. The cerebellar tonsils are normal in configuration. Ventricles, sulci, and cisterns: Normal in configuration. Pituitary and sella: Unremarkable. Intracranial vasculature: Normal flow voids are maintained at the skull base. Orbits: The bony orbits are grossly intact. Orbital contents are normal in appearance. Sinuses and mastoids: There is mild mucosal thickening within air-fluid level in the left maxillary antrum. The remaining paranasal sinuses and mastoid air cells are clear. Calvarium: Unremarkable. Cervical cord: Partially visualized cervical spinal cord is normal in morphology and signal intensity. IMPRESSION: 1. There is an acute to subacute cortical infarct identified in the right temporal lobe. 2. There are additional punctate foci of acute to subacute ischemia present within the right temporal, parietal, and occipital lobes. The appearance suggests an embolic origin throughout the right MCA territory. 3. There is no hemorrhage or mass effect. Electronically signed by: Tor Solano M.D. 06/17/2017 7:31 AM Impression 1. New right middle cerebral artery distribution stroke, predominantly in the temporal lobe but also in the parietal and borderline occipital lobe. I am not convinced that his lesions cross the middle cerebral artery into another vascular distribution. Given the scattered nature of these lesions and his history, although I cannot exclude all of this occurring yesterday, I am concerned that he has been showering small emboli into the right hemisphere over a more prolonged period of time. All of his lesions, however, are in the right middle cerebral artery distribution. Perhaps he had a more significant middle cerebral artery stenosis which has broken off and left only the M2 segment occlusion with the scattered small strokes throughout the middle cerebral artery distribution on the right. He does not have any history of risk factors for stroke including heart disease or cigarette smoking, but I have noted his blood pressures been elevated on admission, his glucose is mildly elevated and he has elevated triglycerides. He has not been on any medication to prevent stroke prior to admission. 2. Subacute history of cognitive issues of a progressive nature. This may all be due to cerebral vascular disease but underlying dementia cannot be excluded. 3. Patient has had some vertiginous episodes and falling. This may be due to an inner ear disorder. I am not sure how this symptom relates to his findings on MRI. 4. The patient has slowness and bradykinesia. He does not have a Parkinson's gait, resting tremor, or rigidity. The bradykinesia seen may be more related to an underlying dementia or even cerebral vascular disease. 5. Numb feet with absent Achilles reflexes consistent with an early polyneuropathy involving predominantly sensory fibers. This could be due to diabetes. Plan 1. Awaiting echocardiogram results. 2. For now, initiate clopidogrel 75 mg daily. We will decide depending on his test results whether we should use anticoagulant. 3. Control glucose, hypertension, and lipids I spoke with Dr. Garay regarding the case including differential diagnosis and treatment options. I spoke with the patient and his was present at bedside reviewing the case and reviewing the MRI films with them. Overall, I spent a total of 65 minutes with this case.
--- NOTE | 2017-06-17 15:06 | ECHOCARDIOGRAM REPORT ---
*NOTICE TO RECEIVING DEMOCRAT AGENCY This information is strictly Confidential and protected under [place] law. [place] law prohibits you from making any further disclosure of this information unless further disclosure is expressly permitted by the written consent of the person to whom it pertains or is authorized by law. A general authorization for the release of medical or other information is not sufficient for this purpose. Hospital accepts no responsibility if the information is made available to any other person, INCLUDING THE PATIENT. Interpretation Summary * Name: GARLAND HARLEY Study Date: 06/17/2017 07:11 AM BP: 116/70 mmHg * Patient Location: C.2T\S\S230\S\2 HR: 68 * : 1940 (M/d/yyyy) Gender: Male Height: 72 in * Age: 77 yrs Ethnicity: [place] Weight: 189 lb * Ordering Physician: Lopez Tolbert * Referring Physician: Self, Referred * Performed By: Jagruti Romero RCS * * Reason For Study: CVA, Abnormal EKG * BSA: 2.1 m2 * Normal biventricular systolic function. * Class 1 left ventricular diastolic dysfunction. * Normal chamber dimensions. * Trace mitral and tricuspid regurgitation. * No significant valvular abnormalities noted. * No cardiac source of emboli noted. * -- Conclusions -- * Aortic valve sclerosis mild, without significant aortic valvular stenosis. Procedure Details * A complete two-dimensional transthoracic echocardiogram was performed (2D, M-mode, Doppler and color flow Doppler). * A saline contrast injection was performed to assess for cardiac shunting. * The injection was performed through an intravenous line in the right arm. * The attending nurse who injected the saline contrast was Shiela Hobson RN. * A total of 10 cc of agitated saline was given. Left Ventricle * The left ventricle is normal in size. * There is no thrombus. * There is normal left ventricular wall thickness. * Left ventricular systolic function is normal. * Ejection Fraction = 55-60%. * A full diastolic examination was done with clinical findings of Class I diastolic dysfunction. Right Ventricle * The right ventricle is normal in size and function. Atria * The left atrial size is normal. * Right atrial size is normal. * Injection of contrast documented no interatrial shunt. Mitral Valve * The mitral valve is normal. * There is mild mitral annular calcification. * There is no mitral valve stenosis. * There is trace mitral regurgitation. Tricuspid Valve * The tricuspid valve is not well visualized, but is grossly normal. * There is no tricuspid stenosis. * There is trace tricuspid regurgitation. * Right ventricular systolic pressure is normal. Aortic Valve * The aortic valve is trileaflet. * The aortic valve opens well. * Aortic valve sclerosis mild, without significant aortic valvular stenosis. * No aortic regurgitation is present. Pulmonic Valve * The pulmonic valve is not well visualized. * The pulmonary valve is inadequately visualized, but the Doppler data is adequate for interpretation. * There is no pulmonic valvular stenosis. * There is no significant pulmonary regurgitation. Great Vessels * The aortic root is normal size. Pericardium/Pleural * There is no pericardial effusion. MMode 2D Measurements and Calculations IVSd 0.76 cm LVIDd 4.0 cm LVIDs 2.7 cm LVPWd 0.87 cm IVS/LVPW 0.88 FS 33.3 % EDV(Teich) 71.7 ml ESV(Teich) 26.9 ml EF(Teich) 62.5 % EDV(cubed) 66.0 ml ESV(cubed) 19.6 ml EF(cubed) 70.3 % LV mass(C)d 97.9 grams LV mass(C)dI 47.0 grams/m\S\2 SV(Teich) 44.8 ml SI(Teich) 21.5 ml/m\S\2 SV(cubed) 46.4 ml SI(cubed) 22.3 ml/m\S\2 Ao root diam 3.4 cm Ao root area 9.1 cm\S\2 LA dimension 3.5 cm LA/Ao 1.0 Doppler Measurements and Calculations MV E max veronica 73.9 cm/sec MV A max veronica 103.5 cm/sec MV E/A 0.71 Ao V2 max 157.9 cm/sec Ao max PG 10.0 mmHg TR max veronica 180.3 cm/sec
[2017-06-17] MEDS ORDERED: LPT40 PO (17:11)
[2017-06-17] MEDS ORDERED: CLOP1TAB5 PO (17:11)
--- NOTE | 2017-06-17 17:15 | Discharge Instructions ---
Discharge Instructions Date of Service Jun 17, 2017. Admission Reason for Admission: CVA Discharge Discharge Diagnosis / Problem: Acute CVA Discharge Goals Goal(s): Decrease discomfort, Improve function, Increase independence, Improve disease control, Learn about illness, Diagnostic testing, Therapeutic intervention, Prevent Disease Progression Activity Recommendations Activity Limitations: resume your previous activity Exercise/Sports Limitations: as tolerated . Instructions / Follow-Up Instructions / Follow-Up Patient to be discharged home Admitted and found to have acute stroke Please note addition of plavix 75 mg tablet once daily and lipitor 40 mg tablet once daily as well If worsening weakness, numbness, facial droop, problems swallowing or talking please report to ER Follow up with Dr Marroquin in 1-2 weeks Current Hospital Diet Patient's current hospital diet: AHA Diet (Heart Healthy) Discharge Diet Recommended Diet: AHA Diet (Heart Healthy) Pending Studies Studies pending at discharge: no Laboratory Results Hemoglobin A1c Test 06/16/17 19:10 Range/Units Estimated Average Glucose 131 mg/dl Hemoglobin A1c 6.2 H 4.5-5.6 % Lipid Panel Test 06/17/17 05:32 Range/Units Triglycerides Level 211 H 0-150 mg/dl Cholesterol Level 164 0-200 mg/dl HDL Cholesterol 40 mg/dl Cholesterol/HDL Ratio 4.1 LDL Cholesterol, Calculated 82 mg/dl Medical Emergencies . Who to Call and When: Medical Emergencies: If at any time you feel your situation is an emergency, please call 911 immediately. . Non-Emergent Contact Non-Emergency issues call your: Primary Care Provider Call Non-Emergent contact if: you have any medication questions . . "Provider Documentation" section prepared by Mohsen Garay. . VTE Core Measure Inpt VTE Proph given/why not?: Unfractionated heparin SQ
--- NOTE | 2017-06-17 17:28 | Discharge Instructions ---
Discharge Instructions Date of Service Jun 17, 2017. Admission Reason for Admission: CVA Discharge Discharge Diagnosis / Problem: Acute CVA Discharge Goals Goal(s): Decrease discomfort, Improve function, Increase independence, Improve disease control, Learn about illness, Diagnostic testing, Therapeutic intervention, Prevent Disease Progression Activity Recommendations Activity Limitations: resume your previous activity Exercise/Sports Limitations: as tolerated . Instructions / Follow-Up Instructions / Follow-Up Patient to be discharged home Admitted and found to have acute stroke Please note addition of plavix 75 mg tablet once daily and lipitor 40 mg tablet once daily as well If worsening weakness, numbness, facial droop, problems swallowing or talking please report to ER Follow up with Dr Marroquin in 1-2 weeks Risk Factors for Stroke: You can reduce your chances of stroke by working with your medical provider to adopt a healthy lifestyle. Some specific ways to lower your chance of stroke are: * If you are a smoker, now is the time to stop smoking cigarettes * If you are diabetic, improve the control of your blood sugars * Avoid excessive amounts of alcohol * Control high blood pressure * Lose weight if you are overweight * Be sure to lead an active lifestyle * Eat a healthy diet low in salt, cholesterol and fat You should know about other risk factors for stroke that you are unable to control. These include: * Age 55 years or older * Male gender * Certain racial groups: , or / * Family History of Stroke, Mini stroke or Heart Attack * Sickle Cell Disease Follow Up: It is important for you to keep your follow up appointments with your medical provider. Current Hospital Diet Patient's current hospital diet: AHA Diet (Heart Healthy) Discharge Diet Recommended Diet: AHA Diet (Heart Healthy) Pending Studies Studies pending at discharge: no Laboratory Results Hemoglobin A1c Test 06/16/17 19:10 Range/Units Estimated Average Glucose 131 mg/dl Hemoglobin A1c 6.2 H 4.5-5.6 % Lipid Panel Test 06/17/17 05:32 Range/Units Triglycerides Level 211 H 0-150 mg/dl Cholesterol Level 164 0-200 mg/dl HDL Cholesterol 40 mg/dl Cholesterol/HDL Ratio 4.1 LDL Cholesterol, Calculated 82 mg/dl Medical Emergencies . Who to Call and When: Medical Emergencies: Call 911 immediately if you experience any of the following warning signs and symptoms of Stroke: * Sudden numbness or weakness of the face, arm or leg, especially on one side of the body * Sudden confusion, trouble speaking or understanding * Sudden trouble seeing in one or both eyes * Sudden trouble walking, dizziness, loss of balance or coordination * Sudden severe headache with no cause Do not delay calling 911 if you experience any warning signs or symptoms of a stroke. Delay in seeking medical attention may affect what treatments can be given to you. . Non-Emergent Contact Non-Emergency issues call your: Primary Care Provider Call Non-Emergent contact if: you have any medication questions . . "Provider Documentation" section prepared by Mohsen Garay. . Stroke Core Measures Reason no t-PA for Stroke: Treatment not indicated Reason no antithrom by day 2: Treatment provided - N/A Reason no antithrom at D/C: Treatment provided - N/A Reason no statin at D/C: Treatment provided - N/A Reason no anticoag w/a fib: Treatment not indicated VTE Core Measure Inpt VTE Proph given/why not?: Unfractionated heparin SQ
--- NOTE | 2017-06-17 17:38 | Discharge Summary ---
Discharge Summary Date of Service Jun 17, 2017. Discharge Summary Admission Date: Jun 17, 2017 at 15:14 Discharge Date: Jun 17, 2017 Discharge Disposition: Home Principal Diagnosis: Acute CVA Consultations: Neurology Medication Reconciliation New Medications: Clopidogrel Bisulfate (Plavix) 75 Mg Tab 1 TAB PO DAILY for 30 Days, #30 TAB 5 Refills Atorvastatin (Atorvastatin Calcium) 40 Mg Tab 40 MG PO QAM, #30 TAB Discharge Exam Review of Systems: Constitutional: No fever, No chills, No sweats, No weakness ENT: No hearing loss, No unusual epistaxis, No nasal symptoms, No sore throat, No tinnitus Respiratory: No cough, No sputum, No wheezing, No shortness of breath Cardiovascular: No chest pain, No orthopnea, No PND, No edema Abdomen: No pain, No nausea, No vomiting, No diarrhea Musculoskeletal: No joint pain, No muscle pain, No swelling, No calf pain Genitourinary - Male: No hematuria, No dysuria, No urinary frequency, No urinary urgency Neurologic: No memory loss, No paralysis, No weakness, No numbness/tingling Psychiatric: No depression symptoms, No anhedonism, No anxiety, No insomnia Endocrine: No fatigue, No excessive thirst Integumentary: No rash, No itch Physical Exam: General Appearance: WD/WN, no apparent distress Eyes: normal inspection, PERRL, EOMI, sclerae normal ENT: normal ENT inspection, hearing grossly normal, TMs normal, pharynx normal Neck: supple, no adenopathy, thyroid normal, no JVD Respiratory/Chest: chest non-tender, lungs clear, normal breath sounds, no respiratory distress Cardiovascular: regular rate, rhythm, no edema, no gallop, no JVD Abdomen / GI: normal bowel sounds, non tender, soft, no organomegaly Extremities: normal inspection, no calf tenderness, normal capillary refill , no pedal edema Neurologic/Psychiatric: no motor/sensory deficits, alert, normal mood/affect , oriented x 3 Skin: normal color, warm/dry, no rash Lymphatic: no adenopathy Hospital Course 77 y/o M who denies any significant medical history and does not take any daily medications. Beginning approximately 3 days ago he describes an acute unsteady gate, difficulty buttoning his shirt and possibly a L facial droop. He presented to the ER as his issues did not resolve. He denies a LOYOLA, visual changes, fevers, CP, palpitations, SOB. A CT head confirmed a right temporal lobe subacute infarct. He does not currently exhibit impaired coordination although his gait remains unstable and there is a noticeable L facial droop. 1) CVA - pt admitted to telemetry, neurology consult requested - placed on ASA and a Statin. MRI of the brain showed acute stroke in the right middle cerebral artery distribution scattered in the occipital, parietal, and temporal head regions. The largest lesions were in the temporal lobe.MR angiography of the head showed an occluded right M2 segment. MR angiography of the neck showed some irregularity in the right carotid artery but no significant stenosis. Echo unremarkable. Pt started on plavix and statin , and continued on discharge. Full code - Heparin prophylaxis Total Time Spent: Greater than 30 minutes This includes examination of the patient, discharge planning, medication reconciliation, and communication with other providers. Discharge Instructions Please refer to the electronic Patient Visit Report (Discharge Instructions) for additional information.
--- NOTE | 2017-06-17 18:06 | Pharmacy Progress Note ---
Pharmacist Stroke Counseling Date of Service Jun 17, 2017. Scope Pharmacy has been consulted to provide medication discharge counseling for this patient admitted with ischemic stroke/hemorrhagic stroke/ transient ischemic attack as per the Pharmacist Discharge Counseling for Stroke Patients Protocol. Medications on Discharge New Medications: Clopidogrel Bisulfate (Plavix) 75 Mg Tab 1 TAB PO DAILY for 30 Days, #30 TAB 5 Refills Atorvastatin (Atorvastatin Calcium) 40 Mg Tab 40 MG PO QAM, #30 TAB Action The above medications, specifically ones for stroke treatment/prophylaxis, have been reviewed in detail with the patient and/or patient arborist representative(s) prior to discharge. This includes indication, common adverse reactions, drug interactions, and medication administration. Medication counseling has been employed using the teach-back method to ensure understanding. Outcome The patient and/or patient arborist representative(s) have demonstrated understanding of the medications. Please note, they are aware that the pharmacist will call them within 72 hours post-discharge to confirm that the appropriate medications are being taken and answer any further medication related questions the patient might have at that time. Contact information Individual to be contacted: Amauri or Brandi Relationship to patient (if applicable): Phone number: [phone] Best time to call: 9-5 Additional comments: Thank you for allowing pharmacy to be involved in the care of this patient. Please call [phone] or [phone] with any additional questions Discharge Information Spoke with Pt and his . Both demonstrated a strong understanding of the new medications.
--- NOTE | 2017-06-19 14:22 | Pharmacy Progress Note ---
Pharmacist Post D/C Phone Note Date of phone call: Jun 19, 2017. Individual with whom pharmacist spoke to: Amauri Oropeza (patient) The following questions were reviewed during the phone call with responses listed below each: Can you tell me the medications that you are currently taking as well as when and how you take each medication? Reported Home Medications Medications Dose Route/Sig Max Daily Dose Days Date Category Plavix (Clopidogrel Bisulfate) 75 Mg Tab 1 Tab PO DAILY 30 06/17/17 Rx Atorvastatin Calcium (Atorvastatin) 40 Mg Tab 40 Mg PO QAM 06/17/17 Rx When have you missed any doses of your medications? - Denies. States, " will not let me miss". Advised to take dose as soon as he remembers, or skip if near time for next dose (i.e. less than 8-10 hours). Stressed that he should never double up dose. He uses pillbox given by pharmacy at time of discharge. What side effects are you having from your medications? - Denies. Aware to monitor for s/sx bleeding/bruising, myopathy. What questions do you have about your medications? - None at this time. What problems are you having obtaining your medications? - Denies, has Rx plan. Medications generic. When is your next appointment with your primary care doctor? - 06/23/17 @ [id number] (PCP); Neurology on 07/02/17 Additional comments: - Was not taking any Rx's prior to admission. All medications are new. He was only taking MVI, vitamin E, and vitamin C along with some supplements/herbals for his prostate. - Takes vitamin E daily (dose unknown); advised to discuss with PCP. Vitamin E may incr' bleeding risk with Plavix. - He only uses Tylenol prn pain/headache. Advised to avoid NSAID's. As per the Pharmacist Discharge Counseling for Stroke Patients Protocol, this phone call has been completed within 72 hours of discharge. Thank you for allowing us to be involved in the care of this patient.
== END 2017-06-17 18:24 | disposition home or self-care (01) | DRG 66 ==
LOC: C.EDB 18:44 → C.2T 22:25 → ENRESERV 22:38 → OBSVTOIN 06-17 15:14
PROVIDERS: ADMIT Internal Medicine; ATTEND Hospitalist
DX: I63.511 Cerebral infarction due to unspecified occlusion or stenosis of right middle cerebral artery (principal); I10 Essential (primary) hypertension; Z83.3 Family history of diabetes mellitus; Z82.49 Family history of ischemic heart disease and other diseases of the circulatory system

== ENCOUNTER → 2017-07-31 | Outpatient (CLI) | payer OTHER ==
[~2017-07-31] MED LIST: CLOP1TAB5 PO; LPT40 PO
[2017-07-31 13:31] LABS: CHOLESTEROL/HDL RATIO 2.5
== END | disposition home or self-care (01) ==
LOC: C.LABPVFM 10:15
PROVIDERS: ATTEND Family Medicine
DX: E78.5 Hyperlipidemia, unspecified (principal)

== ENCOUNTER → 2018-01-01 | Outpatient (CLI) | payer OTHER ==
[2018-01-01 17:35] LABS: BASO % 0.9 %; BASO ABS # 0.07 K/uL (0-0.2); EOS % 2.2 %; EOS ABS # 0.18 K/uL (0-0.5); HEMATOCRIT 43.6 % (42-52); HEMOGLOBIN 15.5 g/dL (14.0-18.0); IG# 0.02 K/uL (0.00-0.02); LYMPH % 23.1 %; LYMPH ABS # 1.87 K/uL (1.2-3.4); MEAN CORPUSCULAR HEMOGLOBIN 33.4 pg (25-34); MEAN CORPUSCULAR HGB CONC 35.6 g/dl (32-36); MONO % 11.7 %; MONO ABS # 0.95 K/uL (0.11-0.59); NEUT % 61.9 %; NEUT ABS # 5.02 K/uL (1.4-6.5); PLATELET COUNT 280 K/uL (130-400); RED CELL DISTRIBUTION WIDTH CV 13.1 % (11.5-14.5); RED CELL DISTRIBUTION WIDTH SD 44.7 fL (36.4-46.3); WHITE BLOOD COUNT 8.11 K/uL (4.8-10.8)
[2018-01-01 17:46] LABS: ALBUMIN 4.3 gm/dl (3.4-5.0); ALT/SGPT 35 U/L (12-78); AST/SGOT 19 U/L (15-37); BLOOD UREA NITROGEN 17 mg/dl (7-18); CALCIUM 9.2 mg/dl (8.5-10.1); CARBON DIOXIDE 28 mmol/L (21-32); CHOLESTEROL 198 mg/dl (0-200); CREATININE 1.25 mg/dl (0.60-1.40); GLUCOSE 106 mg/dl (70-99); POTASSIUM 4.4 mmol/L (3.5-5.1); SODIUM 137 mmol/L (136-145)
[2018-01-01 17:56] LABS: ALKALINE PHOSPHATASE 66 U/L (45-117); LDL CHOLESTEROL CALCULATED 107 mg/dl; TOTAL PROTEIN 7.6 gm/dl (6.4-8.2)
[2018-01-02 06:52] LABS: HEMOGLOBIN A1C 6.1 % (4.5-5.6)
== END | disposition home or self-care (01) ==
LOC: C.LABPVFM 14:10
PROVIDERS: ATTEND Family Medicine
DX: E78.5 Hyperlipidemia, unspecified (principal); R61 Generalized hyperhidrosis; E55.9 Vitamin D deficiency, unspecified; E16.1 Other hypoglycemia

== ENCOUNTER 2022-12-18 15:08 | Observation (INO) ==
[2022-12-18] MEDS ORDERED: ASPIRIN CHEW 324 MG PO STA (15:31)
[2022-12-18 15:53] LABS: Basophils # (auto) 0.11 K/uL (0-0.2); Eosinophils # (auto) 0.08 K/uL (0-0.50); Eosinophils % (auto) 0.8 %; Hematocrit (blood only) 45.5 % (42.0-52.0); Hemoglobin 15.9 g/dl (14.0-18.0); Immature Granulocytes # (auto) 0.04 K/uL (0.01-0.20); Immature Granulocytes % (auto) 0.4 %; Lymphocytes # (auto) 1.25 K/uL (1.2-3.4); Lymphocytes % (auto) 11.7 %; Mean Corpuscular Hemoglobin 32.1 pg (25.0-34.0); Mean Corpuscular Hgb Conc 34.9 g/dL (32.0-36.0); Mean Corpuscular Volume 91.9 fL (80.0-100.0); Mean Platelet Volume 10.3 fL (9.4-12.4); Monocytes # (auto) 1.41 K/uL (0.11-0.59); Monocytes % (auto) 13.2 %; Neutrophils # (auto) 7.77 K/uL (1.40-6.50); Neutrophils % (auto) 72.9 %; Platelet Count 301 K/uL (130-400); RDW Coefficient of Variation 12.6 % (11.5-14.5); RDW Standard Deviation 42.4 fL (36.4-46.3); Red Blood Count 4.95 M/uL (4.70-6.10); White Blood Count 10.66 K/ul (4.8-10.8)
[2022-12-18 16:12] LABS: BUN Creatinine Ratio 14.2 (10-20); Calcium 10.2 mg/dl (8.6-10.3); Creatinine Clr Calc Pharmacy 55.3 ml/min; Est GFR (African American) 69.8 ml/min; Est GFR (Non-African American) 60.2 ml/min; Potassium 4.2 mmol/L (3.5-5.1)
--- NOTE | 2022-12-18 16:16 | XRay Report ---
SINGLE VIEW CHEST CLINICAL HISTORY: Atypical chest pain. FINDINGS: An AP, portable, upright chest radiograph is compared to study dated 06/11/2021. The cardio mediastinal silhouette is unremarkable noting atherosclerotic calcification of the thoracic aorta. Th e pulmonary vasculature is noncongested. Chronic interstitial thickening is similar to previous. The lungs and pleural spaces are clear. No pneumothorax is seen. The skeletal structures are osteopenic. The bony thorax is grossly intact. IMPRESSION: No active disease in the chest. ACT 112: Negative or not required by law. Electronically signed by: Tor Solano M.D. 12/18/2022 4:14 PM
[2022-12-18 16:23] LABS: D Dimer 450 ug/L FEU (0-500); Partial Thromboplastin Ratio 1.2; Prothrombin Time 10.9 Seconds (9.0-12.0)
[2022-12-18 16:24] LABS: Troponin I High Sensitivity 99.1 pg/ml (0-20)
--- NOTE | 2022-12-18 16:41 | CT Scan Report ---
HEAD CT NONCONTRAST CT DOSE: 1400.53 mGy.cm HISTORY: New-onset headache. Leg weakness. TECHNIQUE: Multiaxial CT images of the head were performed without the use of intravenous contrast. A utomated exposure control was utilized for this study. A dose lowering technique was utilized adheri ng to the principles of ALARA. Comparison: Head CT 05/18/2020. Findings: The paranasal sinuses and mastoid air cells are clear. The calvarium and skull base are int act. The ventricles and sulci are within normal limits. There is no mass, hematoma, midline shift, or acute infarct. There is an old small right MCA territory infarct again noted. There are old punctate lacunar infarcts within the left basal ganglia, unchanged. Impression: No significant change compared to the prior study. No acute intracranial abnormality. ACT 112: Negative or not required by law. Electronically signed by: Tim Garza M.D. 12/18/2022 4:40 PM
--- NOTE | 2022-12-18 17:15 | History & Physical Report ---
Date of Service December 18, 2022 Assessment & Plan (1) Chest pain: Plan: Shortness of breath, chest tightness. Acute. 30 minutes of shortness of breath initially chest pain on EMS report, patient reports it was more a tightness of his breathing which resolved after rest Troponin mildly elevated at 99.1 on admission, no acute territorial ST segment changes Patient denies history of past [place] or coronary disease. 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 Reports this was not amenable to surgical intervention, was recommended to be on Plavix but "this fell off after a while "and has not taken this recently. Denies history of diabetes, review of chart shows last A1c was 6.1 without antiglycemic's D-dimer negative, oxygen saturation is normal on room air Troponin trended, echo pending If rapid rise in troponin, increasing chest pain, or abnormalities on echo heparinize and consult cardiology. Otherwise follow-up with stress test to restratify. NPO at 0000 in case rapid rise/stress recommended Last echo 2021 with EF 55 to 60%, mild , mild MR. Normal LV SF/wall motion - Lipids/A1C pending Carotid artery stenosis Left ICA stenosis with history of CVA without residual deficit Recommended that both due to this and his prior CVA and possible cardiac disease he should be on a antiplatelet medication. Patient did follow-up with vascular surgery in 2019, no surgery is recommended due to high risk of stroke associated with severity and location. Restart Plavix 75 mg daily No acute neurologic deficits on admission Hypertension, acute unstable Patient denies history of this. Reports blood pressure normally in the 130s. 190 systolic on admit, 1 dose of labetalol given. Started on amlodipine daily. Trend BP, Follow-up PCU Hyperlipidemia Patient intolerant of statins, patient has been counseled on the risk of CVA/[place] due to hyperlipidemia but has both stopped statins due to myalgia and Zetia in the past. Can consider PCSK9 as outpatient. DVT prophylaxis: Lovenox CODE STATUS: DNR/DNI, discussed at bedside Diet: Heart healthy Disposition: PCU for cardiac rule out (2) CVA (cerebral vascular accident): (3) Hypertension: History of Present Illness Primary Care Provider: Shahida Doan MD Patient reports he developed chest pain while mowing his lawn earlier this morning. After 2-3 laps strong shortness of breath 'very severe' and felt weak all over. Was not having chest or neck pain. Pulse was irregular by palpation with his . Rested and shortness of breath went away after 30 minutes. At time of bedside he is having no symptoms and feels normal, denies chest pressure, chest pain, shortness of breath, palpitations, lightheadedness, dizziness. Denies any recent history of syncope or presyncope. No nausea/vomiting. Was not sweating during the episode No prior history of [place]/CAD/Stents. +history of carotid artery disease for which he follows with [facility] [place], not amenable to surgical intervention adn noted to have collateral formation per pt. Is not on aspirin or plaavix currently, was on plaavix for 4-5 years and on repeat US had 75% blockage. Had a CVA a few years ago which presented as L facial droop which improved. CVA was 4-5 years ago. Denies HTN, past mild HLD. Takes no medications. "They prescribed a few times, don't remember what but they fell off after a few years." Was last seen in 2020, per chart review at that time was recommended to continue Plavix. Patient reports medications "just fell off " Medical History: Reviewed Medications: Reviewed Surgical History: Reviewed Family history: Reviewed Allergies: Reviewed. Myalgias to statins. "I don't take much medicines otherwise, but I don't thin" Social History: chew tobacco. 1 pouch lasts 2 days. Used since war. No ETOH use. Code Status: DNR/DNI Allergies Allergy/AdvReac Type Severity Reaction Status Date / Time atorvastatin [From Lipitor] AdvReac Intermediate myalgia Verified 12/18/22 16:54 Home Medications Medication Instructions Recorded Confirmed Type No Known Home Medications 12/18/22 12/18/22 History Past Med/Surg History Medical History (Updated 12/18/22 @ 17:28 by Bharath Lantigua MD) Dyslipidemia Elevated blood sugar level Elevated vitamin B12 level H/O agent Ida exposure H/O: CVA (cerebrovascular accident) Hypomagnesemia Vitamin D deficiency Surgical History Hx of appendectomy Hx of tonsillectomy Family History Mother Myocardial infarction Cardiac disorder Diabetes Hypertension Brother Cardiac disorder Diabetes Kidney stones Grandfather (Maternal) Cardiac disorder Hypertension Myocardial infarction Grandmother (Maternal) Diabetes Denies family history of Ovarian cancer Prostate cancer Breast cancer Colorectal cancer Social History (Updated 10/31/20 @ 13:35 by Arianna Lanza LPN) Smoking Status: Never smoker Do You Dip or Chew Tobacco: Yes; Hx Alcohol Use: No Hx Substance Use: No marital status: Current Living Situation: Spouse current occupational status: retired Feels Safe at Home: Yes Childhood Exposure to Second-Hand Smoke: No caffeine: Yes Dental Care, Regularly: No Physical Activity Frequency: 3-4 Times per Week Seatbelt Use: always Sunscreen Use: No Review of Systems Review of Systems: All systems reviewed & are unremarkable except as noted in HPI & below Physical Exam Physical Exam: General: A&Ox3. NAD. Cooperative. HEENT: Atraumatic, normocephalic. Vision/hearing intact. Pulm: CTAB A&P. -wheezes, -rales, -rhonchi. Symmetrical chest rise. No increased work of breathing. No respiratory distress. R TTP at area Cardiac: RRR, -mrg. Radial pulses intact and symmetrical. Abdominal: Nontender, nondistended, soft. BS present. Ext: warm, dry no LE edema. Neuro: Radial nerves grossly intact. 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 Sensation intact to soft touch in hands and feet Results & Data Results & Data Vital Signs (Past 12 Hours) Vital Signs Temp Pulse Resp BP Pulse Ox O2 Del Method 12/18/22 16:38 74 12 147/104 H 98 12/18/22 16:00 83 23 97 12/18/22 15:34 163/102 H 12/18/22 15:34 89 24 95 12/18/22 15:31 96 Room Air 12/18/22 15:39 85 12/18/22 15:20 36.6 C 97 H 16 155/91 H 95 Room Air PG Care Time/CCT Total # of Minutes Spent Total Time Spent with Patient: Total time spent is greater than 50% in coordination of care (as documented) at patient's floor/unit and/or counseling patient: Coding Level of Care Code 00911 INT INP/OBS CARE 3/75MIN Diagnoses Chest pain R07.9 CVA (cerebral vascular accident) I63.9 Hypertension I10
[2022-12-18] MEDS ORDERED: LABETALOL HCL IV 5 MG/ML 20ML IV PRN (17:36)
[2022-12-18] MEDS ORDERED: amLODIPine BESYLATE 5 MG TAB PO ONE (17:45)
--- NOTE | 2022-12-18 18:14 | Emergency Department Note ---
History of Present Illness General Chief Complaint: Arrhythmia/Palpitations Stated Complaint: SOB,DIZZY,ARRHYTHMIA,WEAK Time Seen by Provider: 12/18/22 15:26 History of Present Illness Provider Complaint: shortness of breath and cough Onset (ago): hour(s) (1) Severity: severe Consistency/Duration: + improved Relieved By: + rest Exacerbated By: + exertion Context: + occurred during exertion Associated symptoms: + palpitations; no chest pain, no pain with inspiration, no cough, no wheezing, no hemoptysis, no nausea/vomiting, no syncope, no abdominal pain or no chest congestion Home Medications Medication Instructions Recorded Confirmed Type No Known Home Medications 12/18/22 12/18/22 History Allergies Allergy/AdvReac Type Severity Reaction Status Date / Time atorvastatin [From Lipitor] AdvReac Intermediate myalgia Verified 12/18/22 16:54 Past Med/Surg History Medical History (Updated 12/18/22 @ 18:14 by Alex Gonzalez MD) Dyslipidemia Elevated blood sugar level Elevated vitamin B12 level H/O agent Raymond exposure H/O: CVA (cerebrovascular accident) Hypomagnesemia Vitamin D deficiency Surgical History Hx of appendectomy Hx of tonsillectomy Family History Mother Myocardial infarction Cardiac disorder Diabetes Hypertension Brother Cardiac disorder Diabetes Kidney stones Grandfather (Maternal) Cardiac disorder Hypertension Myocardial infarction Grandmother (Maternal) Diabetes Denies family history of Ovarian cancer Prostate cancer Breast cancer Colorectal cancer Social History Smoking Status: Never smoker Do You Dip or Chew Tobacco: Yes; Hx Alcohol Use: No Hx Substance Use: No marital status: Current Living Situation: Spouse current occupational status: retired Feels Safe at Home: Yes Childhood Exposure to Second-Hand Smoke: No caffeine: Yes Dental Care, Regularly: No Physical Activity Frequency: 3-4 Times per Week Seatbelt Use: always Sunscreen Use: No Physical Exam Vital Signs: Vital Signs - 24 hr 12/18/22 15:20 12/18/22 15:39 12/18/22 15:31 Temperature 36.6 C Temperature Source Temporal Artery Sc an Pulse Rate 97 H 85 Pulse Rate from Sp O2 Sensor Respiratory Rate 16 Respiratory Effort / Characteristics Non-Labored Sponta neous Respiratory Depth Normal Blood Pressure 155/91 H Blood Pressure Tasha n 112 Pulse Oximetry 95 96 Oxygen Delivery Me thod Room Air Room Air Sepsis Recent Feve r Within 48 Hours No Sepsis New/Unexpla ined Change in Men tess Status No Sepsis Action Take n by Nursing No Action Required 12/18/22 15:34 12/18/22 15:34 12/18/22 16:00 Temperature Temperature Source Pulse Rate 89 83 Pulse Rate from Sp O2 Sensor 92 H 82 Respiratory Rate 24 23 Respiratory Effort / Characteristics Respiratory Depth Blood Pressure 163/102 H Blood Pressure Tasha n 122 Pulse Oximetry 95 97 Oxygen Delivery Me thod Sepsis Recent Feve r Within 48 Hours Sepsis New/Unexpla ined Change in Men tess Status Sepsis Action Take n by Nursing 12/18/22 16:38 Temperature Temperature Source Pulse Rate 74 Pulse Rate from Sp O2 Sensor Respiratory Rate 12 Respiratory Effort / Characteristics Respiratory Depth Blood Pressure 147/104 H Blood Pressure Tasha n 118 Pulse Oximetry 98 Oxygen Delivery Me thod Sepsis Recent Feve r Within 48 Hours Sepsis New/Unexpla ined Change in Men tess Status Sepsis Action Take n by Nursing Physical Exam: Physical Exam GENERAL: oriented to person, place, and time. appears well-developed and well- nourished. HENT: Exam performed. - Head: Normocephalic and atraumatic. EYES: Conjunctivae and EOM are normal. Right eye exhibits no discharge. Left eye exhibits no discharge. No scleral icterus. NECK: Normal range of motion. Neck supple. No JVD present. CV: Normal rate, regular rhythm, normal heart sounds and intact distal pulses. There is no peripheral edema. Palpable radial pulses bue. PULM/CHEST: Effort normal and breath sounds normal. No respiratory distress. No stridor. no wheezes. no rales. ABD: The abdomen is soft. There is no tenderness. NEURO: Motor and sensation grossly intact. SKIN: Skin is warm and dry. He is not diaphoretic. PSYCH: normal mood and affect. Behavior is normal. Judgment and thought content normal. Course Course 1525: The patient was evaluated in room A4. A complete history and physical exam was performed Cardiac monitoring: An order was placed for continuous cardiac monitoring. The monitor shows a rate of 90 with sinus rhythm interpreted by me 1650: Vital signs stable. On reassessment the patient states he feels much better after resting in the emergency department. Labs within normal limits with exception of an elevated troponin of 99.1. D-dimer negative. Given the patient's elevated high-sensitivity troponin as well as exertional dyspnea [facility] Fu[facility] will be notified. Administered Medications Discontinued Medications Amlodipine Besylate (Amlodipine Besylate 5 Mg Tab) 5 mg PO NOW ONE Stop: 12/18/22 17:46 Last Admin: 12/18/22 17:59 Dose: 5 mg Documented By: HS Aspirin (Aspirin Chew 324 Mg) 324 mg PO NOW STA Stop: 12/18/22 15:32 Last Admin: 12/18/22 15:38 Dose: 324 mg Documented By: HS Medical Decision Making Laboratory Data Attestation: I reviewed the patient's lab results. 12/18/22 15:35 12/18/22 15:35 Lab Results 12/18/22 12/18/22 12/18/22 Range/Units 15:35 15:35 15:35 WBC 10.66 (4.8-10.8) K/ul RBC 4.95 (4.70-6.10) M/uL Hgb 15.9 (14.0-18.0) g/dl Hct 45.5 (42.0-52.0) % MCV 91.9 (80.0-100.0) fL MCH 32.1 (25.0-34.0) pg MCHC 34.9 (32.0-36.0) g/dL RDW Std Deviation 42.4 (36.4-46.3) fL RDW Coeff of Trena 12.6 (11.5-14.5) % Plt Count 301 (130-400) K/uL MPV 10.3 (9.4-12.4) fL Immature Gran % (Auto) 0.4 % Neut % (Auto) 72.9 % Lymph % (Auto) 11.7 % [place] % (Auto) 13.2 % Eos % (Auto) 0.8 % Baso % (Auto) 1.0 % Neut # (Auto) 7.77 H (1.40-6.50) K/uL Lymph # (Auto) 1.25 (1.2-3.4) K/uL [place] # (Auto) 1.41 H (0.11-0.59) K/uL Eos # (Auto) 0.08 (0-0.50) K/uL Baso # (Auto) 0.11 (0-0.2) K/uL Immature Gran # (Auto) 0.04 (0.01-0.20) K/uL PT 10.9 (9.0-12.0) Seconds INR 1.0 (0.9-1.1) APTT 33.0 H (21.0-31.0) Seconds PTT Ratio 1.2 D-Dimer 450 (0-500) ug/L FEU Sodium 138 (136-145) mmol/L Potassium 4.2 (3.5-5.1) mmol/L Chloride 103 (98-107) mmol/L Carbon Dioxide 29 (21-32) mmol/L Anion Gap 6 (3-11) BUN 16 (6-23) mg/dl Creatinine 1.13 (0.6-1.4) mg/dl Est Cr Clr Drug Dosing 55.3 ml/min Est GFR ( Amer) 69.8 ml/min Est GFR (Non-Af Amer) 60.2 ml/min BUN/Creatinine Ratio 14.2 (10-20) Glucose 111 H (70-99(Fasting)) mg/dl Calcium 10.2 (8.6-10.3) mg/dl Troponin I High Sens 99.1 H* (0-20) pg/ml Lipase 14 (11-82) U/L SARS-CoV-2, RNA, NAAT (NEGATIVE) 12/18/22 Range/Units 16:56 WBC (4.8-10.8) K/ul RBC (4.70-6.10) M/uL Hgb (14.0-18.0) g/dl Hct (42.0-52.0) % MCV (80.0-100.0) fL MCH (25.0-34.0) pg MCHC (32.0-36.0) g/dL RDW Std Deviation (36.4-46.3) fL RDW Coeff of Trena (11.5-14.5) % Plt Count (130-400) K/uL MPV (9.4-12.4) fL Immature Gran % (Auto) % Neut % (Auto) % Lymph % (Auto) % [place] % (Auto) % Eos % (Auto) % Baso % (Auto) % Neut # (Auto) (1.40-6.50) K/uL Lymph # (Auto) (1.2-3.4) K/uL [place] # (Auto) (0.11-0.59) K/uL Eos # (Auto) (0-0.50) K/uL Baso # (Auto) (0-0.2) K/uL Immature Gran # (Auto) (0.01-0.20) K/uL PT (9.0-12.0) Seconds INR (0.9-1.1) APTT (21.0-31.0) Seconds PTT Ratio D-Dimer (0-500) ug/L FEU Sodium (136-145) mmol/L Potassium (3.5-5.1) mmol/L Chloride (98-107) mmol/L Carbon Dioxide (21-32) mmol/L Anion Gap (3-11) BUN (6-23) mg/dl Creatinine (0.6-1.4) mg/dl Est Cr Clr Drug Dosing ml/min Est GFR ( Amer) ml/min Est GFR (Non-Af Amer) ml/min BUN/Creatinine Ratio (10-20) Glucose (70-99(Fasting)) mg/dl Calcium (8.6-10.3) mg/dl Troponin I High Sens (0-20) pg/ml Lipase (11-82) U/L SARS-CoV-2, RNA, NAAT NEGATIVE (NEGATIVE) Imaging Data Attestation: I personally reviewed and interpreted this imaging study as follows: My Impression: Chest x-ray negative. Airway clear. No pneumothorax. No consolidation. No cardiomegaly or cephalization.. No free air under the diaphragm. No fractures of the skeletal structures. Radiologist's Impression: Chest X-Ray 12/18/22 15:31 SINGLE VIEW CHEST CLINICAL HISTORY: Atypical chest pain. FINDINGS: An AP, portable, upright chest radiograph is compared to study dated 06/11/2021. The cardiomediastinal silhouette is unremarkable noting atherosclerotic calcification of the thoracic aorta. The pulmonary vasculature is noncongested. Chronic interstitial thickening is similar to previous. The ehsan ngs and pleural spaces are clear. No pneumothorax is seen. The skeletal structures are osteopenic. The bony thorax is grossly intact. IMPRESSION: No active disease in the chest. ACT 112: Negative or not required by law. Electronically signed by: Tor Solano M.D. 12/18/2022 4:[address] 12/18/22 15:[address] DOSE: 1400.53 mGy.cm HISTORY: New-onset headache. Leg weakness. TECHNIQUE: Multiaxial CT images of the head were performed without the use of intravenous contrast. Automated exposure control was utilized for this study. A dose lowering technique was utilized adhering to the principles of ALARA. Comparison: Head CT 05/18/2020. Findings: The paranasal sinuses and mastoid air cells are clear. The calvarium and skull base are intact. The ventricles and sulci are within normal limits. There is no mass, hematoma, midline shift, or acute infarct. There is an old small right MCA territory infarct again noted. There are old punctate lacunar infarcts within the left basal ganglia, unchanged. Impression: No significant change compared to the prior study. No acute intracranial abnormality. ACT 112: Negative or not required by law. Electronically signed by: Tim Garza M.D. 12/18/2022 4:40 PM ECG Data Attestation: I personally reviewed and interpreted this ECG as follows: Interpretation: Sinus rhythm with rate of 90. OR QRS and QTc intervals are within normal limits. No ST elevation or ST depression. Right bundle branch block present. Left ventricular hypertrophy present. [facility] Narrative 1526: The patient was evaluated in room A4. A complete history and physical exam was performed Cardiac monitoring: An order was placed for continuous cardiac monitoring. The monitor shows a rate of 90 with sinus rhythm interpreted by me 1650: Vital signs stable. On reassessment the patient states he feels much better after resting in the emergency department. Labs within normal limits with exception of an elevated troponin of 99.1. D-dimer negative. Given the patient's elevated high-sensitivity troponin as well as exertional dyspnea the [facility] De La Fuente will be notified. Impression & Plan Exertional dyspnea, Elevated troponin Discharge Plan Visit Data Chief Complaint: Arrhythmia/Palpitations Stated Complaint: SOB,DIZZY,ARRHYTHMIA,WEAK ED Provider: Carlos,Alex Discharge Problem: Exertional dyspnea, Elevated troponin Patient Disposition: Being Evaluated by Hospitalist Forms Stand Alone Forms: [place] Prescriptions Prescriptions: No Action No Known Home Medications Referrals Referrals: Shahida Doan MD [Primary Care Provider] -
[2022-12-18] MEDS ORDERED: NITROGLYCERIN SL 0.4 MG/TAB TAB SL PRN (18:45)
[2022-12-18] MEDS ORDERED: ENOXAPARIN INJ 40 MG/0.4 ML SYR SQ SCH (19:00)
[2022-12-19 08:12] LABS: Basophils # (auto) 0.09 K/uL (0-0.2); Eosinophils # (auto) 0.18 K/uL (0-0.50); Hematocrit (blood only) 42.2 % (42.0-52.0); Hemoglobin 14.6 g/dl (14.0-18.0); Immature Granulocytes # (auto) 0.03 K/uL (0.01-0.20); Immature Granulocytes % (auto) 0.3 %; Lymphocytes % (auto) 21.5 %; Mean Corpuscular Hemoglobin 31.9 pg (25.0-34.0); Mean Corpuscular Hgb Conc 34.6 g/dL (32.0-36.0); Mean Corpuscular Volume 92.1 fL (80.0-100.0); Mean Platelet Volume 10.2 fL (9.4-12.4); Monocytes # (auto) 1.22 K/uL (0.11-0.59); Monocytes % (auto) 13.8 %; Neutrophils # (auto) 5.43 K/uL (1.40-6.50); Neutrophils % (auto) 61.4 %; Platelet Count 291 K/uL (130-400); RDW Coefficient of Variation 12.7 % (11.5-14.5); Red Blood Count 4.58 M/uL (4.70-6.10); White Blood Count 8.85 K/ul (4.8-10.8)
[2022-12-19 08:31] LABS: BUN Creatinine Ratio 16.8 (10-20); Calcium 9.3 mg/dl (8.6-10.3); Chol HDL Ratio 4.6 (0-5); Creatinine Clr Calc Pharmacy 55.3 ml/min; Est GFR (African American) 69.8 ml/min; Est GFR (Non-African American) 60.2 ml/min; Potassium 4.1 mmol/L (3.5-5.1)
[2022-12-19] MEDS ORDERED: CLOPIDOGREL BISULFATE 75 MG TAB PO SCH (09:00)
[2022-12-19] MEDS ORDERED: DOBUTamine HCL 12.5 MG/ML 20 ML VIAL IV ONE (11:47)
[2022-12-19] MEDS ORDERED: ATROPINE SULFATE 0.1 MG/ML 10ML SYR IV ONE (11:47)
[2022-12-19] MEDS ORDERED: METOPROLOL TARTRATE 1 MG/ML VIAL IV ONE (11:47)
--- NOTE | 2022-12-19 13:39 | XCELERA ---
[id number]
--- NOTE | 2022-12-19 13:40 | Electrocardiogram Report ---
Test Reason : Blood Pressure : / mmHG Vent. Rate : 090 BPM Atrial Rate : 090 BPM P-R Int : 176 ms QRS Dur : 104 ms QT Int : 356 ms P-R-T Axes : 076 -48 090 degrees QTc Int : 435 ms Poor data quality, interpretation may be adversely affected Normal sinus rhythm Non-specific intra-ventricular conduction delay Left anterior fascicular block Minimal voltage criteria for LVH, may be normal variant Anteroseptal infarct (cited on or before 16-JUN-2017) Abnormal ECG When compared with ECG of 16-JUN-2017 19:21, Left anterior fascicular block is now Present Questionable change in initial forces of Anterior leads Confirmed by Brayan Terry ([id number]) on 12/19/2022 1:40:48 PM Referred By: REFERRED SELF Confirmed By:Brayan Terry
[2022-12-19 13:45] LABS: Estimated Average Glucose 131 mg/dl; Hemoglobin A1C 6.2 % (4.5-5.6)
--- NOTE | 2022-12-19 18:13 | Discharge Summary ---
Date of Service December 19, 2022 Admission HPI Per Admitting Provider Patient reports he developed chest pain while mowing his lawn earlier this morning. After 2-3 laps strong shortness of breath 'very severe' and felt weak all over. Was not having chest or neck pain. Pulse was irregular by palpation with his . Rested and shortness of breath went away after 30 minutes. At time of bedside he is having no symptoms and feels normal, denies chest pressure, chest pain, shortness of breath, palpitations, lightheadedness, dizziness. Denies any recent history of syncope or presyncope. No nausea/vomiting. Was not sweating during the episode No prior history of [place]/CAD/Stents. +history of carotid artery disease for which he follows with [facility] [place] [place], not amenable to surgical intervention adn noted to have collateral formation per pt. Is not on aspirin or plaavix currently, was on plaa vix for 4-5 years and on repeat US had 75% blockage. Had a CVA a few years ago which presented as L facial droop which improved. CVA was 4-5 years ago. Denies HTN, past mild HLD. Takes no medications. "They prescribed a few times, don't remember what but they fell off after a few years." Was last seen in 2020, per chart review at that time was recommended to continue Plavix. Patient reports medications "just fell off " Medical History: Reviewed Medications: Reviewed Surgical History: Reviewed Family history: Reviewed Allergies: Reviewed. Myalgias to statins. "I don't take much medicines othe rwise, but I don't thin" Social History: chew tobacco. 1 pouch lasts 2 days. Used since war. No ETOH use. Code Status: DNR/DNI Principal Diagnosis chest pain negative stress test Discharge Exam pt is without recurrent symptoms, did have stress without concern for unstable angina Discharge Data Allergies Allergy/AdvReac Type Severity Reaction Status Date / Time atorvastatin [From Lipitor] AdvReac Intermediate myalgia Verified 12/18/22 16:54 Consultations 12/18/22 16:50 ED Decision to Admit Stat Ordered Studies 12/18/22 15:31 CT head/brain wo con Stat Hospital Course (1) Chest pain: Shortness of breath, chest tightness. Troponin mildly elevated no significant trend but did rise, no acute territorial ST segment changes Patient denies history of past [place] or coronary disease. 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 Reports this was not amenable to surgical intervention, was recommended to be on Plavix but "this fell off after a while "and has not taken this recently. negative stress test, pt recommended to be on asprin a day Carotid artery stenosis Left ICA stenosis with history of CVA without residual deficit Recommended that both due to this and his prior CVA and possible cardiac disease he should be on a antiplatelet medication. Patient did follow-up with vascular surgery in 2019, no surgery is recommended due to high risk of stroke associated with severity and location. pt considering aspirin Hypertension, acute, pt is medicine averse, will not agree to home meds Hyperlipidemia Patient intolerant of statins, patient has been counseled on the risk of CVA/WV due to hyperlipidemia but has both stopped statins due to myalgia and Zetia in the past. CODE STATUS: DNR/DNI, (2) CVA (cerebral vascular accident): (3) Hypertension: Total Time Total Time Spent Total Time Spent (In Minutes): It required greater than 30 minutes to prepare this patient for discharge Discharge Plan Discharge Items Patient Disposition: Home - Self-Care Reason For Visit: CHEST PAIN, TROP Discharge Diagnosis: non cardiac related symptoms Activity: Resume your previous activity Non-emergency contact: Primary Care Provider Call non-emergency contact if: your symptoms worsen Follow-up/Referrals: Shahida Doan MD [Primary Care Provider] - 12/25/22 12:00 pm (Will be seen by Mita Aguirre) Diet: Regular Addtl Attending Provider Instructions: your stress test did not show any signs of heart strain or distress, no t hreatened heart attack slowly resume your activity and follow up with your family doctor given your previous medical problems consider taking a baby aspirin a day Pending Studies at Discharge: No Stand-Alone Forms: My [place], Smoking Cessation Medications and DC Order Prescriptions: No Action No Known Home Medications Discharge Orders: Discharge Order (Routine); Ordered 12/19/22 Ordered By: Benjamin Ma Admission Data Admit Date/Time: 12/18/22 17:35 Attending Provider: Benjamin Ma Admit Provider: Bharath Lantigua Primary Care Provider: Shahida Doan Other Providers: Bharath Lantigua ; [facility] Other Interventions: Discharge Summary Assessment (RN) Last Done: 12/19/22 13:00 Coding Level of Care Code 81798 INP/OBS DISCH >30 MIN Diagnoses Chest pain R07.9 CVA (cerebral vascular accident) I63.9 Hypertension I10
== END 2022-12-19 13:25 | disposition home or self-care (01) ==
LOC: ED 15:08 → 2S 15:08 → SUATTDRO 17:35 → 2S 18:28